=== PATIENT | male | born 1955 | race Asian ===

== ENCOUNTER 2019-07-27 11:22 | Outpatient (CLI) | payer OTHER, SELFPAY ==
--- NOTE | ~2019-07-27 | XR_ITS ---
XR chest 2V DATE: 07/27/2019 11:53 INDICATION: Cough TECHNIQUE: PA and lateral views COMPARISON: 01/06/2016 PA and lateral chest FINDINGS: Normal heart size. There is mild aortic unfolding. No hilar or mediastinal enlargement. No pulmonary infiltrate or consolidation, pleural effusion or pulmonary vascular congestion or pneumotho rax. Probable nipple shadow overlying the lateral left lower lung. Degenerative spurring of the thoracic spine. IMPRESSION: No active cardiopulmonary disease Reviewed, dictated and finalized at location B.
--- NOTE | ~2019-07-27 | XR_ITS ---
XR sinus min 3V DATE: 07/27/2019 11:53 INDICATION: Cough. Sinus pressure. TECHNIQUE: gabrielle Vallejo, lateral and submental vertical views COMPARISON: None FINDINGS: The paranasal sinuses and mastoid air cells are normally developed and aerated. There is prominence of the nasal turbinates. The nasal septum. There is virtually midline. IMPRESSION: Normally aerated paranasal sinuses and mastoid air cells Reviewed, dictated and finalized at location B.
== END 2019-07-27 11:23 | disposition home or self-care (01) ==
LOC: ANHIMG 11:30
PROVIDERS: PCP Internal Medicine; Visit Provider Internal Medicine
DX: J34.89 Other specified disorders of nose and nasal sinuses (principal)
CPT/HCPCS: 70220; 71046

== ENCOUNTER 2020-11-22 09:39 | Outpatient (CLI) | payer OTHER, SELFPAY ==
--- NOTE | 2020-12-09 12:42 | WPDSLEEPSTUD ---
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 He does not wake up feeling short of breath, does not wake up with heartburn, coughing or belching, rarely snores loudly enough that others complain, and only occasionally has trouble sleeping with a cold. he does not wake up gasping for breath at night. He does not have breathing problems at night reported to him by others. He does not sweat excessively at night or notices heart pounding or beating irregularly night. Does not fall asleep during the day, does not fall asleep involuntarily or while driving. Does not have loss of muscle tone was strong emotion. He does not have daytime difficulties due to excessive sleepiness. He does not feel paralyzed on waking or falling asleep. He rarely has vivid dreamlike scenes upon awakening or falling asleep. He does not feel afraid to go to sleep. He does not have nightmares. He rarely remembers his dreams. He does not have racing thoughts, feelings of sadness, depression or anxiety. He denies muscular tension. He denies noticing parts his body jerking or kicking at night. He does not have crawling or aching feelings in his legs. He does not have any kind of leg pain at night. He denies morning jaw pain. He does not grind his teeth during sleep. He is not bothered by pain during the day or awakened by pain at night. He does not wake up feeling stiff in the morning. He occasionally wakes up with sore achy muscles and pain in the neck and spine. He has fatigue. Normal bedtime is 10:00 p.m. falling asleep within 30-45 minutes waking once at night between 4:30 to 5:00 a.m., goes to the bathroom to urinate and returns to bed but usually is not able to fall asleep again. He does not generally take naps. A short nap may be refreshing. He is drowsy in the morning for 3 hours or longer. Habits: Quit tobacco 30 years ago. Caffeine 3-4 cups a day. Alcohol once or twice a week. No recreational drugs. 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 Left thigh pain Mixed hyperlipidemia Muscular aches FAITH on CPAP Prostate cancer screening Shingles Sinus drainage Trochanteric bursitis of left hip Type 2 diabetes mellitus without complication Vitamin D deficiency Weakness Family History Family History Father Family history of diabetes mellitus in first degree relative Diabetes mellitus Mother Family history of diabetes mellitus in first degree relative Diabetes mellitus Sibling Family history of diabetes mellitus in first degree relative Diabetes mellitus Social History Social History Smoking status: Never smoker Second hand tobacco smoke exposure: No Alcohol intake: current Drinks per week: 1 Spiritual care concerns: No Medications Home Medications Medication Instructions Recorded Confirmed Type sitagliptin 50 mg-metformin 500 mg 1 tablet PO BID #180 tablet 05/30/20 12/04/20 Rx tablet omega-3 fatty acids 1,00
[2020-12-09 12:50] VITALS: BMI 28.8
== END 2020-11-23 06:52 | disposition home or self-care (01) ==
LOC: ANHCSM 09:40
PROVIDERS: PCP Internal Medicine; Visit Provider Internal Medicine
DX: G47.33 Obstructive sleep apnea (adult) (pediatric) (principal); Z99.89 Dependence on other enabling machines and devices; R53.83 Other fatigue
CPT/HCPCS: 95811

== ENCOUNTER 2021-04-23 12:23 | Emergency (ER) | payer MEDICARE, OTHER, SELFPAY ==
--- NOTE | ~2021-04-23 | XR_ITS ---
EXAMINATION: XR chest 2V DATE: 04/23/2021 12:59 INDICATION: Chest pain. TECHNIQUE: Frontal and lateral views of the chest were obtained. COMPARISON: Chest 2 views 07/27/2019, chest CT 05/28/2014 FINDINGS: The chest demonstrates clear lungs without pneumonia, pleural effusion, or pneumothorax. Th e heart size is normal. IMPRESSION: 1. No acute cardiopulmonary disease. Reviewed, dictated and finalized at location A. [employer]
--- NOTE | 2021-04-23 12:29 | ECG_ITS ---
Measurements Intervals [place] Rate: 66 P: 15 IN: 176 QRS: 31 QRSD: 82 T: 51 QT: 380 QTc: 398 Interpretive Statements SINUS RHYTHM BASELINE WANDER- I, II, III, V4-V5 NORMAL ECG Electronically Signed On 04-23-2021 13:21:12 [employer] SURVEY WORKER by Darvin Melendez D.O.
[2021-04-23 12:33] VITALS: BP 133/80; PULSE 67; RESP 16; TEMP 36.6; O2SAT 99
[2021-04-23 12:43] LABS: Basophils Percent Auto 0.5 % (0.2-1.2); Eosinophils Absolute Auto 0.1 K/mm3 (0-0.3); Hematocrit 41.5 % (42.0-52.0); Immature Granulocyte Absolute 0.01 K/mm3 (0.00-0.031); Immature Granulocyte Percent A 0.2 % (0-0.5); Lymphocytes Absolute Auto 1.61 K/mm3 (0.9-3.2); Lymphocytes Percent Auto 27.1 % (18.3-44.2); Mean Corpuscular HGB Conc 33.7 g/dl (32-36); Mean Corpuscular Hemoglobin 31.7 pg (26-34); Mean Corpuscular Volume 93.9 fl (80-100); Mean Platelet Volume 9.9 fl (7.4-10.4); Monocytes Absolute Auto 0.4 K/mm3 (0.1-0.6); Monocytes Percent Auto 7.1 % (2.6-8.5); Neutrophils Absolute Auto 3.8 K/mm3 (1.3-6.7); Neutrophils Percent Auto 64.1 % (45.5-73.1); Platelet Count Result 148 k/mm3 (150-375); Red Blood Count 4.42 M/mm3 (4.6-6.20); White Blood Count 5.9 K/mm3 (4.5-10.0)
[2021-04-23 12:58] LABS: INR 1.1; Partial Thromboplastin Time 33.7 SECONDS (22.3-36.8); Prothrombin Time 13.7 Seconds (11.1-14.7)
[2021-04-23 13:01] LABS: Alanine Aminotransferase 51 U/L (4-50); Albumin Level 4.1 g/dL (3.5-5.1); Alkaline Phosphatase 47 U/L (38-126); Anion Gap 10 mmol/L (8-16); Aspartate Amino Transferase 41 U/L (17-59); Bilirubin,Total 0.9 mg/dL (0.2-1.3); Blood Urea Nitrogen 11 mg/dL (9-20); Calcium 9.7 mg/dL (8.4-10.2); Carbon Dioxide 29 mmol/L (22-30); Chloride 98 mmol/L (98-107); Estimated CRCL calculation 84 ml/min; Estimated Glomerular Filt Rate > 60; Glucose 133 mg/dL (65-110); Lipase 305 U/L (23-300); Potassium 4.4 mmol/L (3.4-5.0); Sodium 137 mmol/L (137-145)
[2021-04-23 13:13] LABS: Troponin I < 0.012 ng/mL (0.000-0.034)
[2021-04-23 15:05] VITALS: BP 136/86; PULSE 64; O2SAT 100
[2021-04-23 17:10] VITALS: BP 138/81; PULSE 60; RESP 15; O2SAT 100
[2021-04-23 17:12] VITALS: PULSE 62
[2021-04-23] MEDS: ASPIRIN 81 MG CHEWABLE TABLET 324 MG PO (17:22)
[2021-04-23 18:30] LABS: Troponin I < 0.012 ng/mL (0.000-0.034)
--- NOTE | 2021-04-23 18:43 | ED.CHESTPAIN ---
HPI - Chest Pain General Chief Complaint: Chest Pain Stated Complaint: cp Time Seen by Provider: 04/23/21 16:36 Source: patient Mode of arrival: ambulatory Limitations: no limitations History of Present Illness HPI narrative: 66-year-old with a history of hypertension, diabetes here with complaints of fluttering sensation in his chest last night which lasted for few hours. Patient states it is more like spasms. He denied any shortness of breath, nausea or diaphoresis with the chest discomfort. Patient states that he went to work this morning by mid afternoon he felt weak and had sweating. He denies having pain this morning or in this afternoon. Patient also states that he had a stress test approximately 3 or 4 years ago which was. He also recollects that few days ago he was weight lifting. complaint: chest discomfort Onset (ago): day(s) (1) Timing of current episode: now resolved Onset: during rest Pain location: parasternal Pain radiation: none Severity: moderate Quality: aching Relieving factors: nothing Exacerbating factors: nothing Risk Factors Coronary artery disease risk factors: diabetes and hypertension Related Data Home Medications Medication Instructions Recorded Confirmed omega-3 fatty acids 1,000 mg 1,000 mg PO BID 07/09/20 03/28/21 capsule fosinopril 20 mg PO DAILY 12/04/20 03/28/21 sitagliptin 50 mg-metformin 500 mg 1 tablet PO BID 12/25/20 03/28/21 tablet Allergies Allergy/AdvReac Type Severity Reaction Status Date / Time No Known Allergies Allergy Verified 04/23/21 17:13 Review of Systems Review of Systems: All systems reviewed & are unremarkable except as noted in HPI and below Constitutional: Constitutional: Reports no additional constitutional complaints Eyes: Eyes: Reports no additional eye complaints ENT: Reports system reviewed and no additional complaints, except as documented Cardiovascular: Cardiovascular: Reports as per HPI Respiratory: Respiratory: Reports no additional respiratory complaints Gastrointestinal: Gastrointestinal: Reports no additional gastrointestinal complaints Musculoskeletal: Musculoskeletal: Reports no additional musculoskeletal complaints Integumentary/Breasts: Skin/Breast: Reports system reviewed and no additional complaints, except as docu Neurologic: Reports system reviewed and no additional complaints, except as documented [facility] Past Medical History Medical History Balanitis Bilateral cataracts BMI 28.0-28.9,adult BMI 29.0-29.9,adult Constipation Cough Encounter for routine adult health examination without abnormal findings Fatigue Follow up Hypertension Iron deficiency 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 Left thigh pain Mixed hyperlipidemia Muscular aches FAITH on CPAP Prostate cancer screening Shingles Sinus drainage Trochanteric bursitis of left hip Type 2 diabetes mellitus without complication Vitamin D deficiency Weakness Family History Family History Father Family history of diabetes mellitus in first degree relative Diabetes mellitus Mother Family history of diabetes mellitus in first degree relative Diabetes mellitus Sibling Family history of diabetes mellitus in first degree relative Diabetes mellitus Social History Social History Smoking status: Never smoker Second hand tobacco smoke exposure: No Alcohol intake: never Drinks per week: 1 Spiritual care concerns: No Exam Narrative: GENERAL: Well-appearing, well-nourished, and in no acute distress. HEAD: Normocephalic, atraumatic. EYES: PERRLA and EOMI.. NECK: Supple. CHEST: Clear to auscultation. No respiratory distress. HEART: Regular rate and rhythm. No murmur heard. Normal peripheral pulses. ABDOMEN: Soft, nontender, nondistended, normal active bowel sounds.
[2021-04-23 19:10] VITALS: BP 144/83; PULSE 59; RESP 18; O2SAT 100
== END 2021-04-23 19:14 | disposition home or self-care (01) ==
PROVIDERS: Emergency Medicine; Emergency Provider Family Medicine; PCP Internal Medicine
DX: R07.9 Chest pain, unspecified (principal); I10 Essential (primary) hypertension; E78.2 Mixed hyperlipidemia; G47.33 Obstructive sleep apnea (adult) (pediatric); E11.9 Type 2 diabetes mellitus without complications
CPT/HCPCS: 36415; 71046; 80053; 83690; 84484; 85025; 85610; 85730; 93005; 99284; A9270

== ENCOUNTER → 2021-04-28 07:28 | Outpatient (CLI) | payer MEDICARE, OTHER, SELFPAY ==
[2021-04-28 22:01] LABS: SARS-CoV-2 RNA PCR Negative (Negative)
== END ==
PROVIDERS: PCP Internal Medicine; Visit Provider Internal Medicine
DX: R68.89 Other general symptoms and signs (principal); Z20.822 Contact with and (suspected) exposure to COVID-19
CPT/HCPCS: C9803; U0003; U0005

== ENCOUNTER 2021-07-28 08:29 | Outpatient (CLI) | payer MEDICARE, OTHER, SELFPAY ==
--- NOTE | 2021-07-28 08:50 | EST_ITS ---
Patient Info Name: Rudy Bragg Age: 66 years : 1955 Gender: Male Ht: 67 in Wt: 182 lbs BSA: 2.00 m2 HR: 78 bpm BP: 122 / 84 mmHg Technical Quality: Good Exam Date: 07/28/2021 9:12 AM Exam Location: [facility] Patient Status: Outpatient Admit Date: 07/28/2021 Staff Ordering Physician: Harvey Reynoso MD Fireworks Assembler: Agustina Ling RDCS Attending Provider: Harvey Reynoso MD Referring Physician: Angeles TERAN; Exercise Technologist: Sweta Jose CT Exercise Physician: Kike Hernadez MD Exam Type: CA stress echo Study Info Indications - chronic fatique Treadmill exercise stress echocardiogram is performed. Summary 1. Stress echocardiogram is normal. Stress Echo Findings Left Ventricle Normal left venticular systolic function with no regional wall motion abnormalities noted at rest. Left ventricular end systolic volume decreases post stress. Overall global left ventricular systolic function Improved post stress. No regional wall motion abnormalities noted post stress. Normal augmentation of all wall segments without evidence of ischemia with stress. Protocol: Otoniel Stress ECG Details Stage: REST Duration (min): 0 min : 56 sec Speed (mph): 0.0 Grade (%): 0 HR (bpm): 64 SBP (mmHg): 122 DBP (mmHg): 84 METS: --- Stage: REST Duration (min): 9 min : 34 sec Speed (mph): 0.0 Grade (%): 0 HR (bpm): 68 SBP (mmHg): 122 DBP (mmHg): 84 METS: --- Stage: STAGE 1 Duration (min): 1 min : 0 sec Speed (mph): 1.7 Grade (%): 10 HR (bpm): 89 SBP (mmHg): 122 DBP (mmHg): 84 METS: --- Stage: STAGE 1 Duration (min): 2 min : 0 sec Speed (mph): 1.7 Grade (%): 10 HR (bpm): 96 SBP (mmHg): 122 DBP (mmHg): 84 METS: --- Stage: STAGE 1 Duration (min): 3 min : 0 sec Speed (mph): 1.7 Grade (%): 10 HR (bpm): 101 SBP (mmHg): 164 DBP (mmHg): 84 METS: --- Stage: STAGE 2 Duration (min): 1 min : 0 sec Speed (mph): 2.5 Grade (%): 12 HR (bpm): 112 SBP (mmHg): 164 DBP (mmHg): 84 METS: --- Stage: STAGE 2 Duration (min): 2 min : 0 sec Speed (mph): 2.5 Grade (%): 12 HR (bpm): 117 SBP (mmHg): 164 DBP (mmHg): 84 METS: --- Stage: STAGE 2 Duration (min): 3 min : 0 sec Speed (mph): 2.5 Grade (%): 12 HR (bpm): 125 SBP (mmHg): 158 DBP (mmHg): 91 METS: --- Stage: STAGE 3 Duration (min): 1 min : 0 sec Speed (mph): 3.4 Grade (%): 14 HR (bpm): 138 SBP (mmHg): 187 DBP (mmHg): 106 METS: --- Stage: STAGE 3 Duration (min): 2 min : 0 sec Speed (mph): 0.0 Grade (%): 0 HR (bpm): 145 SBP (mmHg): 187 DBP (mmHg): 106 METS: --- Stage: STAGE 3 Duration (min): 3 min : 0 sec Speed (mph): 0.0 Grade (%): 0 HR (bpm): 115 SBP (mmHg): 187 DBP (mmHg): 106 METS: ---
== END 2021-07-28 08:30 | disposition home or self-care (01) ==
LOC: ANHCARD 08:30
PROVIDERS: PCP Internal Medicine; Visit Provider Internal Medicine
DX: R53.82 Chronic fatigue, unspecified (principal); Z79.899 Other long term (current) drug therapy
CPT/HCPCS: 93351

== ENCOUNTER 2021-10-15 08:04 | Outpatient (CLI) | payer MEDICARE, OTHER, SELFPAY ==
--- NOTE | ~2021-10-15 | XR_ITS ---
XR sinus min 3V DATE: 10/15/2021 08:33 INDICATION: Chronic sinusitis TECHNIQUE: gabrielle Vallejo, submental vertical and lateral views COMPARISON: None FINDINGS: Fluid levels are noted in both maxillary sinuses. The frontal sinuses, ethmoid air cells and sphenoid sinuses appear clear. Mastoid air cells appear no rmally aerated. Normal sella turcica. No skull fracture or bone destruction. IMPRESSION: Fluid levels in both maxillary sinuses suggesting bilateral maxillary sinusitis Reviewed, dictated and finalized at location A. IMPRESSION: Fluid levels in both maxillary sinuses suggesting bilateral maxilla ry sinusitis
--- NOTE | ~2021-10-15 | XR_ITS ---
XR chest 2V DATE: 10/15/2021 08:33 INDICATION: Cough, sinus drainage TECHNIQUE: 2 views COMPARISON: 04/23/2021 2 view chest FINDINGS: Borderline heart size. Mild aortic unfolding. No hilar or mediastinal enlargement. No pulmonary infiltrate or consolidation, pleural effusion or pulmonary vascular congestion or pneumo thorax. Degenerative spurring of the thoracic spine. IMPRESSION: Borderline heart size; no active pulmonary disease Reviewed, dictated and finalized at location A.
== END 2021-10-15 08:05 | disposition home or self-care (01) ==
LOC: ANHIMG 08:06
PROVIDERS: PCP Internal Medicine; Visit Provider Internal Medicine
DX: R05.9 Cough, unspecified (principal); R09.89 Other specified symptoms and signs involving the circulatory and respiratory systems; J32.9 Chronic sinusitis, unspecified; J34.89 Other specified disorders of nose and nasal sinuses; R09.81 Nasal congestion; R09.82 Postnasal drip
CPT/HCPCS: 70220; 71046

== ENCOUNTER 2021-12-05 13:22 | Outpatient (CLI) | payer MEDICARE, OTHER, SELFPAY ==
--- NOTE | ~2021-12-05 | CT_ITS ---
EXAMINATION: CT chest high resolution wo fl DATE: 12/05/2021 13:55 INDICATION: Family history of pulmonary fibrosis TECHNIQUE: Computed tomography (CT) of the chest was performed without intravenous contrast. The dose -length product was 233.09 mGy-cm. Automated exposure control and iterative reconstruction technique were employed. COMPARISON: CT dated 05/28/2014 FINDINGS: Heart size is upper normal. There is mild atherosclerosis of the coronary arteries. No sign ificant pleural or pericardial effusion. No thoracic lymphadenopathy. The upper abdomen is unremarkab le. No significant interstitial lung disease. No endobronchial lesions. There is a 3 mm right upper l obe nodule, image 45. There is 2 mm right lower lobe nodule. No endobronchial lesions. No pneumothora x. No acute osseous abnormality. 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 No acute osseous abnormality. IMPRESSION: 1. No acute cardiopulmonary disease. No evidence for interstitial lung disease. 2: Small right-sided pulmonary nodules measuring 3 mm or less, likely benign. Consider follow-up low dose CT chest in 12 months. Reviewed, dictated and finalized at location A. IMPRESSION: 1. No acute cardiopulmonary disease. No evidence for interstitial lung disease. 2: Small right-sided pulmonary nodules measuring 3 mm or less, likely benign. C onsider follow-up low dose CT chest in 12 months.
--- NOTE | 2021-12-05 15:28 | P.PCNPFT_ITS ---
PFT Procedure Performed PFT Procedure Performed Spirometry with Pre/Post Bronchodilator Plethysmography (Lung Vol) Diffusing Cap (DLCO) Flow Vol Loop PFT Interpretation DOS: 12/05/2021 REQUESTING: Dr. Byrd REASON FOR TESTING: Shortness of breath PULMONARY FUNCTION TESTS Results are reliable and reproducible. Spirometry: Pre-bronchodilator FEV1 is 73% predicted, 2.24 L, below limits of normal. FVC is 67% predicted, 2.68 L, below the lower limits of normal. FEV1:FVC is 84%, this is normal. The BUL40-47% is 2.94 L, within the normal range, 117% of predicted. After bronchodilator administration, there is 1% increase in the FVC which is not significant, a 2% increase in the FEV1 which is not significant. The FEV1/FVC is 85% normal, same. The VMA05-82% is 131% predicted, and this represents an 11% increase. Lung volumes: Total lung capacity is 77% predicted, 4.92 L, within the normal range. Slow vital capacity is 68%, 2.72 L which is below the lower limits of normal. FRC is 85%, 2.81 L, within the normal range. ERV is 49%, 0.67 L, this is below normal. Residual volume is 101% predicted, 2.19 L, normal. RV/TLC is 45% and this is above the normal range indicating air trapping. Diffusion: DLCO 86% predicted, 22.3 mL/min/mmHg, normal. DLCO/VA is 155%, 6.6 mL/min/mmHg, this is above normal range. Flow volume loop: Normal. IMPRESSION: The spirometry is suggestive of a restrictive process with decreased FEV1 and FVC with a normal FEV1:FVC ratio, and a low normal TLC 77%. Air trapping is noted with an increased RV/TLC ratio. Normal DLCO. Compared to a prior study 05/28/2014 at [place], FEV1 was 79% now 73%, lower. FVC was 70% and now 67%, lower. The ratio is preserved. TLC was 105%, now 77%, a greater than expected drop so more of a trend toward restriction. Air trapping was present on the prior study, RV/TLC was 53% compared to normal predicted of 37%. DLCO was 116% and now 86%, normal but significantly lower. DLCO/VA was 161%, now 155%, the same. Clinical correlation recommended. Samreen Alvarez MD
== END 2021-12-05 13:23 | disposition home or self-care (01) ==
PROVIDERS: PCP Internal Medicine; Visit Provider Internal Medicine Pulmonary Disease
DX: R06.00 Dyspnea, unspecified (principal); Z83.6 Family history of other diseases of the respiratory system; R91.8 Other nonspecific abnormal finding of lung field
CPT/HCPCS: 71250; 94060; 94726; 94729

== ENCOUNTER 2022-04-23 01:30 | Day surgery (SDC) | payer MEDICARE, OTHER, SELFPAY ==
[2022-04-15 10:17] VITALS: BMI 28.3
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
[2022-04-23 06:56] VITALS: BP 113/76; PULSE 84; RESP 18; TEMP 36.5; O2SAT 100
[2022-04-23] MEDS: LACTATED RINGERS 1,000 ML 150 ML IV CONT (07:10)
[2022-04-23 07:17] LABS: Glucose Point of Care 117 mg/dl (65-105)
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
[2022-04-23 08:16] VITALS: BP 107/64; PULSE 72; RESP 17; O2SAT 95
[2022-04-23 08:26] VITALS: BP 113/76; PULSE 72; RESP 21; O2SAT 98
[2022-04-23 08:36] VITALS: BP 121/76; PULSE 72; RESP 22; O2SAT 98
== END 2022-04-23 08:44 | disposition home or self-care (01) ==
PROVIDERS: PCP Internal Medicine; Visit Provider Internal Medicine Gastroenterology
PROC: 0DJD8ZZ Inspection of Lower Intestinal Tract, Via Natural or Artificial Opening Endoscopic (ICD-10-PCS; CPT 45378; principal; 2022-04-23 08:00)
DX: Z12.11 Encounter for screening for malignant neoplasm of colon (principal); K64.8 Other hemorrhoids; R19.4 Change in bowel habit; I10 Essential (primary) hypertension; E78.2 Mixed hyperlipidemia; G47.33 Obstructive sleep apnea (adult) (pediatric); E11.9 Type 2 diabetes mellitus without complications; E61.1 Iron deficiency; Z79.84 Long term (current) use of oral hypoglycemic drugs
CPT/HCPCS: G0121; 82948; J2704; J7120

== ENCOUNTER 2022-08-13 08:01 | Outpatient (RCR) | payer MEDICARE, OTHER, SELFPAY | END 2022-10-22 10:56 | disposition home or self-care (01) | LOC: ANHDMC 08:01 | PROVIDERS: PCP Internal Medicine; Visit Provider Internal Medicine | DX: E11.9 Type 2 diabetes mellitus without complications (principal); Z71.89 Other specified counseling | CPT/HCPCS: G0108 ==

== ENCOUNTER 2023-02-03 08:40 | Outpatient (CLI) | payer MEDICARE, OTHER, SELFPAY ==
--- NOTE | ~2023-02-03 | NM_ITS ---
EXAMINATION: NM rosio stress w perfusion DATE: 02/03/2023 10:39 INDICATION: Coronary atherosclerosis. TECHNIQUE: Rest images were obtained following intravenous administration of 10.0 mCi Tc99m tetrofosm in (Myoview). The patient was infused intravenously with Lexiscan (regadenoson). Then, 32.0 mCi Tc99m tetrofosmin (Myoview) was administered intravenously, and stress images were obtained. Data was tomás nstructed into short axis and horizontal and vertical long axis SPECT images. Gated SPECT images were also obtained. COMPARISON: Myocardial perfusion imaging 11/27/2013 FINDINGS: There is no definite reversible or fixed perfusion abnormality to suggest ischemia or infar ction. There is no segmental wall motion abnormality. Left ventricular ejection fraction measures > 70%. IMPRESSION: 1. No definite ischemia or infarct. 2. Normal left ventricular ejection fraction measuring >70%. Reviewed, dictated and finalized at location E.
--- NOTE | 2023-02-03 08:57 | EST_ITS ---
Patient Info Name: Luna Bragg Age: 67 years : 1955 Gender: Male Ht: 67 in Wt: 108 lbs BSA: 1.51 m2 HR: 63 bpm BP: 133 / 89 mmHg Heart Rhythm: Sinus Rhythm Exam Date: 02/03/2023 9:36 AM Exam Location: [facility] Stress Patient Status: Outpatient Admit Date: 02/03/2023 Staff Ordering Physician: Harvey Reynoso MD Attending Provider: Harvey Reynoso MD Exercise Technologist: Sweta Jose CT Exercise Physician: Darvin Melendez DO Exam Type: CA stress rosio w NM Study Info Indications - atherosclerotic heart disease A regadenoson stress test was performed. Summary 1. 1. Negative lexiscan stress test for ischemic ST changes by ECG criteria. 2. 2. Stable hemodynamics throughout the test. 3. 3. Nuclear scan to follow and will be reported separately. Please correlate with it. 4. 4. Patient informed of the above results. Protocol: Lexiscan Stress ECG Details Stage: REST Duration (min): 1 min : 16 sec HR (bpm): 64 SBP (mmHg): 133 DBP (mmHg): 89 Stage: REST Duration (min): 13 min : 29 sec HR (bpm): 66 SBP (mmHg): 133 DBP (mmHg): 89 Stage: STAGE 1 Duration (min): 1 min : 0 sec HR (bpm): 84 SBP (mmHg): 132 DBP (mmHg): 91 Stage: RECOVERY Duration (min): 1 min : 0 sec HR (bpm): 84 SBP (mmHg): 132 DBP (mmHg): 91 Stage: RECOVERY Duration (min): 2 min : 0 sec HR (bpm): 81 SBP (mmHg): 132 DBP (mmHg): 91 Stage: RECOVERY Duration (min): 3 min : 0 sec HR (bpm): 76 SBP (mmHg): 121 DBP (mmHg): 88 Stage: RECOVERY Duration (min): 3 min : 8 sec HR (bpm): 74 SBP (mmHg): 121 DBP (mmHg): 88 Rest HR: 66 bpm Peak HR: 89 bpm Rest Sys BP: 133 mmHg Peak Sys BP: 132 mmHg Max Pred HR: 154 bpm % Max Pred HR: 58 % Target HR: 131 bpm Max RPP: 11,748 bpm*mmHg Termination Reason: Completed protocol Cardiac Symptoms: Shortness of breath Total Time: 1 min : 0 sec Rest Meyer BP: 89 mmHg Peak Meyer BP: 91 mmHg Total Dose: 0.4 mg Resting ECG Sinus rhythm. Stress ECG No ST changes. Arrhythmias None. Report Signatures
== END 2023-02-03 08:41 | disposition home or self-care (01) ==
PROVIDERS: PCP Internal Medicine; Visit Provider Internal Medicine
DX: I25.10 Atherosclerotic heart disease of native coronary artery without angina pectoris (principal); I25.84 Coronary atherosclerosis due to calcified coronary lesion; R93.1 Abnormal findings on diagnostic imaging of heart and coronary circulation
CPT/HCPCS: 78452; 93017; A9502; J2785

== ENCOUNTER 2023-05-27 10:29 | Outpatient (CLI) | payer MEDICARE, OTHER, SELFPAY ==
[2023-05-27 10:50] LABS: Appearance Urine Clear (Clear); Bilirubin Urine Negative (Negative); Blood Urine Negative (Negative); Color Urine Yellow (Yellow); Glucose Urine UA Negative (Negative); Ketones Urine Negative (Negative); Leukocyte Esterase Ur Negative LEU/UL (Negative); Nitrate Urine Negative (Negative); Protein Urine Negative (Negative); Specific Grav Ur 1.011 (1.001-1.035); Urobilinogen Urine 0.2 mg/dL (<2.0)
[2023-05-27 10:54] LABS: Add Urine Microscopic? NO
== END 2023-05-27 10:30 | disposition home or self-care (01) ==
LOC: ANHLAB 10:32
PROVIDERS: PCP Internal Medicine; Visit Provider Internal Medicine
DX: R39.9 Unspecified symptoms and signs involving the genitourinary system (principal); R35.89 Other polyuria
CPT/HCPCS: 81003

== ENCOUNTER 2023-12-10 07:00 | Outpatient (CLI) | payer MEDICARE, SELFPAY ==
--- NOTE | ~2023-12-10 | CT_ITS ---
CT of the Abdomen and Pelvis: Indication: Abnormal labs Technique: 2.5 mm axial scans were obtained through the abdomen and pelvis following intravenous adm inistration of 100 cc of Omnipaque 350. Dose reduction technique was used on this scan by utilizing a utomated exposure control and iterative reconstruction technique. The dose-length product (DLP) was 1 136.63 mGy-cm. Findings: Scans through the lung bases are unremarkable. The liver, spleen, pancreas, gallbladder, adrenals and kidneys are within normal limits. There are at herosclerotic calcifications of the aorta. No lymphadenopathy. No bowel obstruction or bowel wall thickening. There is no evidence to suggest acute appendicitis. Images through the pelvis were performed. Urinary bladder unremarkable. No pelvic mass seen. No ascit es. Impression: No significant abnormalities seen. Reviewed, dictated and finalized at [facility]. Impression: No significant abnormalities seen.
== END 2023-12-10 07:01 | disposition home or self-care (01) ==
PROVIDERS: PCP Internal Medicine; Visit Provider Internal Medicine
DX: R89.9 Unspecified abnormal finding in specimens from other organs, systems and tissues (principal); R82.998 Other abnormal findings in urine
CPT/HCPCS: 74177; Q9967

== ENCOUNTER 2024-08-29 11:27 | Outpatient (CLI) | payer MEDICARE, SELFPAY ==
--- NOTE | ~2024-08-29 | US_ITS ---
LEFT LOWER EXTREMITY VENOUS ULTRASOUND Ordering provider: Harvey Reynoso MD History: . M79.942 - Pain in left lower leg . Comparison: None. FINDINGS: --COMMON FEMORAL: Patent and free of thrombus. Normal compressibility, phasic flow and augmentation. --PROXIMAL SUPERFICIAL FEMORAL: Patent and free of thrombus. Normal compressibility, phasic flow and augmentation. --DISTAL SUPERFICIAL FEMORAL: Patent and free of thrombus. Normal compressibility, phasic flow and au gmentation. --POPLITEAL: Patent and free of thrombus. Normal compressibility, phasic flow and augmentation. --POSTERIOR TIBIAL: Patent and free of thrombus. Normal compressibility, phasic flow and augmentation . IMPRESSION: Negative left lower extremity venous US. No deep vein thrombosis. Reviewed, dictated and finalized at location A.
--- OUTSIDE RECORDS SUMMARY | 2024-08-29 13:24 | XMS_ITS | Encounter Summary ---
Author Organization [facility] Address [address] [place] [address] Phone Care Team Providers Care Health Technician Name Role Phone Milton Junior DO Unavailable [phone] Harvey Reynoso MD Primary Care Provider [phone] Radha Tate RN Unavailable Unavailabl e Encounter Details Date Type Department Care Team (Latest Contact Info) Description 10/15/2021 Orders Only [facility] Scanning, Provider Social History Tobacco Use Types Packs/Day Years Used Date Smoking Tobacco: Former Smokeless Tobacco: Never Sex and Gender Information Value Date Recorded Sex Assigned at Not on file 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 Gender Identity Not on file Sexual Orientation Not on file documented as of this encounter Plan of Treatment Not on file documented as of this encounter Procedures Procedure Name Priority Date/Time Associated Diagnosis Comments SCAN - RADIOLOGY/IMAGING 10/15/2021 documented in this encounter Results * SCAN - RADIOLOGY/IMAGING (10/15/2021) Anatomical Region Laterality Modality Other us Provider Scanning Final Result documented in this encounter Visit Diagnoses Not on filedocumented in this encounter Care Teams Health Technician Relationship Specialty Start Date End Date Harvey Reynoso MD [address] [place] [address] PCP - General Internal Medicine 01/30/20 Milton Junior DO 08/09/18 Radha Tate, RN Registered Nurse Pulmonary Disease 10/06/22 documented as of this encounter
--- OUTSIDE RECORDS SUMMARY | 2024-08-29 13:24 | XMS_ITS | Clinical Summary ---
Author Organization [facility] Address [address] [place] [address] Care Team Providers Care Rink Rat Name Role Phone Harvey Reynoso MD Primary Care Provider [phone] Allergies No known active allergies Medications azelastine (ASTELIN) 0.1 % nasal spray azelastine 137 mcg (0.1 %) nasal spray aerosol Active EPINEPHrine 0.3 MG/0.3ML injection Auvi-Q 0.3 mg/0.3 mL injection, auto-injector ADMINISTER 0.3 MG IN THE MUSCLE 1 TIME FOR 1 DAY Active ferrous sulfate, 65 mg elemental, 325 (65 FE) MG tablet FeroSul 325 mg (65 mg iron) tablet TAKE 1 TABLET BY MOUTH TWICE DAILY 2 Active fluticasone propionate (FLONASE) 50 MCG/ACT nasal spray fluticasone propionate 50 mcg/actuation nasal spray,suspension SHAKE LIQUID AND USE 1 TO 2 SPRAYS IN EACH NOSTRIL TWICE DAILY Active fosinopril (MONOPRIL) 20 MG tablet fosinopril 20 mg tablet TAKE 1 TABLET BY MOUTH DAILY Active rosuvastatin (CRESTOR) 20 MG tablet rosuvastatin 20 mg tablet TAKE 1 TABLET BY MOUTH DAILY 2 Active SITagliptin-met FORMIN HCl (JANUMET) 50-500 MG Tab Janumet 50 mg-500 mg tablet TAKE 1 TABLET BY MOUTH TWICE DAILY Active fexofenadine (QUANG) 180 MG tablet daily. Active Active Problems Problem Noted Date Diagnosed Date Lumbar radiculopathy 06/11/2022 Overview (06/11/2022): Added automatically from request for surgery [id number] Family History Medical History Relation Comments Pulmonary Fibrosis Brother Heart Disease Father pulmonary Mother Relation Status Comments Brother Father Mother Sister Alive Social History Tobacco Use Types Packs/Day Years Used Date Smoking Tobacco: Never Smokeless Tobacco: Never Tobacco Cessation:Counseling Given: Not Answered Alcohol Use Standard Drinks/Week Comments Yes 0 (1 standard drink = 0.6 oz pur e alcohol) social use only Education Answer Date Recorded What is the highest level of school you have completed or the highest degree you have received? 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 Not on file N ot on file Not on file Last Filed Vital Signs Vital Sign Reading Time Taken Comments Blood Pressure 113/76 09/02/2022 8:50 AM CDT Pulse 60 09/02/2022 8:50 AM CDT Temperature 36.6 C (97.9 F) 09/02/2022 7:45 AM CDT Respiratory Rate 18 09/02/2022 8:50 AM CDT Oxygen Saturation 100% 09/02/2022 8:50 AM CDT Inhaled Oxygen Concentration - - Weight 82.2 kg (181 lb 3.2 oz) 09/02/2022 7:45 A M CDT Height 170.2 cm (5' 7 ) 09/02/2022 7:45 AM CDT Body Mass Index 28.38 09/02/2022 7:45 AM CDT Plan of Treatment Health Maintenance Due Date Last Done Comments Colorectal Cancer Screening Colonoscopy (10 Years) 1955 Hepatitis C 1974 DTaP, Tdap and Td Vaccines ( 1 - Tdap) 1975 Pneumococcal Vaccine: 50+ Ye ars (1 of 1 - PCV) 2006 Zoster Vaccines (1 of 2) 2006 Annual Medicare Wellness Visit 2021 COVID-19 Vaccine ( - 2023-2 5 season) 2024 RSV Immunization or 60+ Years (1 - 1-dose 75+ series) 2031 Meningococcal B Vaccine Aged Out No l onger eligible based on patient's age to complete this topic Meningococcal Vaccine Aged Out No janeth zee eligible based on patient's age to complete this topic RSV Immunizations Under 20 Months Aged Out No longer eligible based on patient's age to complete this topic Insurance [id number] OPEN ACCESS [facility] MEDICARE Care Teams Rink Rat Relationship Specialty Start Date End Date Harvey Reynoso MD [address] [place] [address] PCP - General INTERNAL MEDICINE 06/11/22
--- OUTSIDE RECORDS SUMMARY | 2024-08-29 13:24 | XMS_ITS | Encounter Summary ---
Author Organization [facility] Address [address] [place] [address] Phone Care Team Providers Care Manufacturing Development Engineer Name Role Phone Milton Junior DO Unavailable [phone] Harvey Reynoso MD Primary Care Provider Radha Tate RN Unavailable Unavailabl e Encounter Details Date Type Department Care Team (Latest Contact Info) Description 10/13/2021 Orders Only [facility] Scanning, Provider Social History Tobacco Use Types Packs/Day Years Used Date Smoking Tobacco: Former Smokeless Tobacco: Never Sex and Gender Information Value Date Recorded Sex Assigned at Not on file 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 Gender Identity Not on file Sexual Orientation Not on file documented as of this encounter Plan of Treatment Not on file documented as of this encounter Procedures Procedure Name Priority Date/Time Associated Diagnosis Comments PULMONARY - RESULT SCAN 12/05/2021 SCAN - RADIOLOGY/IMAGING 10/13/2021 documented in this encounter Results * PULMONARY - RESULT SCAN (12/05/2021) Anatomical Region Laterality Modality Other us Provider Scanning Final Result * SCAN - RADIOLOGY/IMAGING (10/13/2021) Anatomical Region Laterality Modality Other us Provider Scanning Final Result documented in this encounter Visit Diagnoses Not on filedocumented in this encounter Care Teams Manufacturing Development Engineer Relationship Specialty Start Date End Date Harvey Reynoso MD [address] [facility] [address] [place] [address] PCP - General Internal Medicine 01/30/20 Milton Junior DO 08/09/18 Radha Tate RN Registered Nurse Pulmonary Disease 10/06/22 documented as of this encounter
--- OUTSIDE RECORDS SUMMARY | 2024-08-29 13:24 | XMS_ITS | Encounter Summary ---
Author Organization [facility] Address [address] [place] [address] Phone Care Team Providers Care Knot Tier Name Role Phone Harvey Reynoso MD Primary Care Provider [phone] Milton Junior DO Primary Care Provider [phone] Milton Junior DO Primary Care Provider [phone] Harvey Reynoso MD Unavailable [phone] Milton Junior DO Unavailable [phone] Harvey Reynoso MD Primary Care Provider [phone] Radha Tate RN Unavailable Unavailabl e Encounter Details Date Type Department Care Team (Latest Contact Info) Description 05/29/2014 Orders Only [facility] Scanning, Provider Social History Tobacco Use Types Packs/Day Years Used Date Smoking Tobacco: Never Assessed Sex and Gender Information Value Date Recorded Sex Assigned at Not on file 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 Gender Identity Not on file Sexual Orientation Not on file documented as of this encounter Plan of Treatment Not on file documented as of this encounter Procedures Procedure Name Priority Date/Time Associated Diagnosis Comments SCAN - RADIOLOGY/IMAGING 05/29/2014 documented in this encounter Results * SCAN - RADIOLOGY/IMAGING (05/29/2014) Anatomical Region Laterality Modality Other us Provider Scanning Final Result documented in this encounter Visit Diagnoses Not on filedocumented in this encounter Care Teams Knot Tier Relationship Specialty Start Date End Date Harvey Reynoso MD [address] [facility] [address] [facility] [address] [place] [address] PCP - General 10/15/16 01/31/18 Milton Junior DO [address] [place] [address] [facility] [address] [place] [address] PCP - General 02/01/18 08/08/18 Milton Junior DO [address] [place] [address] [facility] [address] [place] [address] PCP - General Family Medicine 08/09/18 01/29/20 Harvey Reynoso MD [address] [facility] [address] [facility] [address] [place] [address] PCP - General Internal Medicine 01/30/20 Harvey Reynoso MD [address] [facility] [address] [facility] [address] [place] [address] 02/01/18 08/08/18 Milton Junior DO [address] [facility] [address] [facility] [address] [place] [address] 08/09/18 Radha Tate RN Registered Nurse Pulmonary Disease 10/06/22 documented as of this encounter
--- OUTSIDE RECORDS SUMMARY | 2024-08-29 13:24 | XMS_ITS | Encounter Summary ---
Author Organization [facility] Address [address] [place] [address] Phone Care Team Providers Care Hydrographic Surveyor Name Role Phone Milton Junior DO Unavailable [phone] Harvey Reynoso MD Primary Care Provider Radha Tate RN Unavailable Unavailabl e Encounter Details Date Type Department Care Team (Latest Contact Info) Description 10/13/2022 Orders Only [facility] Scanning, Provider Social History Tobacco Use Types Packs/Day Years Used Date Smoking Tobacco: Former Smokeless Tobacco: Never AUDIT-C Answer Date Recorded Q1: How often do you have a drink containing alc ohol? 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 Gender Identity Not on file Sexual Orientation Not on file documented as of this encounter Plan of Treatment Not on file documented as of this encounter Procedures Procedure Name Priority Date/Time Associated Diagnosis Comments SCAN - RADIOLOGY/IMAGING 10/13/2022 documented in this encounter Results * SCAN - RADIOLOGY/IMAGING (10/13/2022) Anatomical Region Laterality Modality Other us Provider Scanning Final Result documented in this encounter Visit Diagnoses Not on filedocumented in this encounter Care Teams Hydrographic Surveyor Relationship Specialty Start Date End Date Harvey Reynoso MD [address] [place] [address] PCP - General Internal Medicine 01/30/20 Milton Junior DO 08/09/18 Radha Tate, RN Registered Nurse Pulmonary Disease 10/06/22 documented as of this encounter
--- OUTSIDE RECORDS SUMMARY | 2024-08-29 13:24 | XMS_ITS | Encounter Summary ---
Author Organization [facility] Address [address] [place] [address] Phone Care Team Providers Care Crm Technical Lead Name Role Phone Milton Junior DO Unavailable [phone] Harvey Reynoso MD Primary Care Provider [phone] Radha Tate RN Unavailable Unavailabl e Encounter Details Date Type Department Care Team (Latest Contact Info) Description 12/05/2021 Orders Only [facility] Scanning, Provider Social History Tobacco Use Types Packs/Day Years Used Date Smoking Tobacco: Former Smokeless Tobacco: Never Sex and Gender Information Value Date Recorded Sex Assigned at Not on file 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 Gender Identity Not on file Sexual Orientation Not on file documented as of this encounter Plan of Treatment Not on file documented as of this encounter Procedures Procedure Name Priority Date/Time Associated Diagnosis Comments SCAN - RADIOLOGY/IMAGING 12/05/2021 documented in this encounter Results * SCAN - RADIOLOGY/IMAGING (12/05/2021) Anatomical Region Laterality Modality Other us Provider Scanning Final Result documented in this encounter Visit Diagnoses Not on filedocumented in this encounter Care Teams Crm Technical Lead Relationship Specialty Start Date End Date Harvey Reynoso MD [address] [place] [address] PCP - General Internal Medicine 01/30/20 Milton Junior DO 08/09/18 Radha Tate, RN Registered Nurse Pulmonary Disease 10/06/22 documented as of this encounter
--- OUTSIDE RECORDS SUMMARY | 2024-08-29 13:24 | XMS_ITS | Clinical Summary ---
Author Organization [place] [id number] [facility] Address [address] [place] [address] Care Team Providers Care Bakery Technician Name Role Phone Milton Junior DO Unavailable [phone] Harvey Reynoso MD Primary Care Provider [phone] Radha Tate RN Unavailable Unavailabl e Allergies No known active allergies Medications fosinopril (MONOPRIL) 20 mg tabletIndicatio ns:hypertension Take 1 tablet (20 mg total) by mouth cv/cvn cv tsc system operator before breakfast 7 Active sildenafil (VIAGRA) 100 mg tabletIndicatio ns:Erectile Dysfunction Take 1 tablet (100 mg total) by mouth as needed for erectile dysfunction 0 9 Active JANUMET 50-500 mg per tabletIndicatio ns:type 2 diabetes mellitus Take 1 tablet by mouth 2 (two) times a day 0 9 Active rosuvastatin (CRESTOR) 10 mg tabletIndicatio ns:hyperlipidem ia Take 1 tablet (10 mg total) by mouth nightly 2 Active FeroSuL 325 mg (65 mg iron) tabletIndicatio ns:Iron Deficiency Anemia Take 1 tablet (325 mg total) by mouth cv/cvn cv tsc system operator before breakfast 2 Active fexofenadine (QUANG) 180 mg tabletIndicatio ns:Allergic Conjunctivitis, Seasonal Allergic Rhinitis Take 1 tablet (180 mg total) by mouth daily as needed (allergies) Active nystatin-triamc inolone creamIndication s:skin irritation Apply 1 Application topically as needed (skin irritation) 3 Active azelastine-flut icasone 137-50 mcg/spray spray,non-aeros ol INSTILL 1 SPRAY INTO EACH AFFECTED NOSTRIL DAILY 23 g 5 3 Active Additional Information Patient not taking.Informant: Self, Reported on 08/08/2024 fluticasone propionate (FLONASE) 50 mcg/actuation nasal sprayIndication s:Allergic Conjunctivitis, Allergic Rhinitis Administer 2 sprays into each nostril daily as needed for allergies or rhinitis 3 Active cholecalciferol , vitamin D3, (VITAMIN D3 ORAL)Indication s:supplement Take 1 tablet by mouth cv/cvn cv tsc system operator before breakfast Active mecobalamin (B12 ACTIVE ORAL)Indication s:supplement Take 1 tablet by mouth cv/cvn cv tsc system operator before breakfast Active UNABLE TO FINDIndications :supplement Take 1 each by mouth nightly Med Name: Asif supplement Active omega-3/dha/epa /dpa/fish oil (OMEGA-3 2100 ORAL)Indication s:supplement Take 1 tablet by mouth nightly Active acetaminophen 500 mg capsuleIndicati ons:Pain Take 2 capsules (1,000 mg total) by mouth every 6 (six) hours 4 Active cyclobenzaprine (FLEXERIL) 10 mg tablet Take 1 tablet (10 mg total) by mouth 3 (three) times a day as needed for muscle spasms 90 tablet 4 Active Additional Information Patient not taking.Reported on 08/08/2024 azelastine (ASTELIN) 137 mcg (0.1 %) nasal spray Active famotidine (PEPCID) 20 mg tablet Take 1 tablet (20 mg total) by mouth 2 (two) times a day 60 tablet 11 4 025 Discontin ued(Thera py completed ) Active Problems Problem Noted Date Diagnosed Date 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 Pulmonary [address] 8[address] [place] [address] [place] [address] Oliva Yancey RMA 08/08/2024 1:48 PM CDT - 08/08/2024 11:59 PM CDT Hospital Encounter [facility] [address] [place] [address] Scottie Heart MD Family history of pulmonary fibrosis; Primary hypertension; Restrictive ventilatory defect Discharge Disposition: Discharge to home or self care 08/08/2024 1:30 PM CDT Office Visit [facility] Pulmonary [address] [place] [id number] Scottie Heart MD Family history of pulmonary fibrosis (Primary Dx); Primary hypertension; Restrictive ventilatory defect; Allergic rhinitis, unspecified seasonality, unspecified trigger 08/08/2024 12:11 PM CDT - 08/08/2024 11:59 PM CDT Hospital Encounter [facility] PFT Lab [address] [facility] [facility] [address] [place] [address] Family history of pulmonary fibrosis; Restrictive ventilatory defect Discharge Disposition: Discharge to home or self care from Last 3 Months Immunizations Immunization Administration Dates Next Due Influenza, Quadrivalent, Alyce l Culture-based MDCK, Preservative Free, Antibiotic Free, Intramuscular 02/05/2020 Influenza, Quadrivalent, Rec ombinant, Egg Free, Preservative Free, Intramuscular 03/23/2018 Influenza, Trivalent, IM (MDV) 02/28/2017,2015,04/04/2014 Influenza, Trivalent, Preser vative Free, Intramuscular 02/08/2016 Influenza, Unspecified 02/08/2012 Surgical History Surgery Date Site/Laterality Comments BACK SURGERY 05/10/2023 - 06/09/2023 L4, L5 Medical History Medical History Date Comments Hypertension Type 2 diabetes mellitus (HCC) Sleep apnea Family History Medical History Relation Name Comments Hypertension Brother Pulmonary fibrosis Brother Heart attack Father Lung disease Mother Hypertension Sister Relation Name Status Comments Brother Father Mother Sister Social History Tobacco Use Types Packs/Day Years Used Date Smoking Tobacco: Former Passive Smoke Exposure: Never Smokeless Tobacco: Never AUDIT-C Answer Date Recorded Q1: How often do you have a drink containing alcohol? Never 01/21/2024 Q2: How many drinks containi ng alcohol do you have on a typical day when you are drinking? Patient does not drink Q3: How often do you have si x or more drinks on one occasion? Never 01/21/2024 Personal Safety Answer Date Recorded Have you ever been in or are you currently in a harmful physical or emotional relationship or is someone making you feel afraid or unsafe? 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 Gender Identity Not on file Sexual Orientation Not on file Obstetrics History Last Filed Vital Signs Vital Sign Reading Time Taken Comments Blood Pressure 126/73 08/08/2024 12:44 PM CDT Pulse 87 08/08/2024 12:44 PM CDT Temperature 36.2 C (97.1 F) 08/08/2024 12:44 PM CDT Respiratory Rate 16 11/16/2023 1:24 PM CDT Oxygen Saturation 98% 08/08/2024 12:44 PM CDT Inhaled Oxygen Concentration - - Weight 85.7 kg (189 lb) 08/08/2024 12:44 PM CDT Height 170.2 cm (5' 7 ) 08/08/2024 12:44 PM CDT Body Mass Index 29.6 08/08/2024 12:44 PM CDT Plan of Treatment Health Maintenance Due Date Last Done Comments Colon Cancer Screening-Colonoscopy 1955 Depression Screening 1955 Hepatitis C Screening 1955 Prostate Cancer Screening-PSA 1956 DTaP/Tdap/Td Vaccine (1 - Tdap) 1967 Hepatitis B Screening 1974 Pneumococcal vaccine 65+ (1 of 2 - PCV) 1975 Zoster Vaccine (1 of 2) 2006 Abdominal Aortic Aneurysm (A AA) Screen 2021 Well Visit 65+ 2021 Fall Risk Assessment 06/03/2024 06/03/2023 Influenza Vaccine (Season Ended) 2025 02/05/2020, 03/23/2018, 02/28/2017, Additional history exists Medical Devices Implanted Type Area Scroll Machine Operator Device Identifier Shelf Expiration Date Model / Serial / Lot Medtronic Inc Kit Graft Bone Sponge Xlg Infuse 8cc Granules [id number] - [id number] Implanted:Qty: 1 on 06/01/2023 by Marques Cruz MD at [facility] N/A: Spine Lumbar Medtronic Inc [id number] / / Allosource Canpac Nonpurge Frozen Graft 25cc Bone [id number] - [id number] Implanted:Qty: 1 on 06/01/2023 by Marques Cruz MD at [facility] N/A: Spine Lumbar Allosource 02/19/2028 [id number] / / [id number] Globus Medical Altera [id number] 15d Spacer Spinal 1124.1133 - [id number] Implanted:Qty: 1 on 06/01/2023 by Marques Cruz MD at [facility] N/A: Spine Lumbar Globus Medical 1124.1133 / / New Age Medical Graft Bone Magnetos 10cc 1-2mm Granules In Moldable Putty [id number] - [id number] Implanted:Qty: 1 on 06/01/2023 by Marques Cruz MD at [facility] N/A: Spine Lumbar New Age Medical [id number] / / Alyssa Spine [place] Od6.5 Mm L45 Mm Polyaxial Spine Screw Bone [id number] - [id number] Implanted:Qty: 3 on 06/01/2023 by Marques Cruz MD at [facility] N/A: Spine Lumbar Lorado Spine [id number] / / Lorado Spine [place] Spine Screw Set Taylor [id number] - [id number] Implanted:Qty: 4 on 06/01/2023 by Marques Cruz MD at [facility] N/A: Spine Lumbar Alyssa Spine [id number] / / Lorado Spine Doron Spinal Lumbar Radiolucent Non Hexagonal Head Laser Etched Radius Ela 3 6x35mm Titanium [id number] - [id number] Implanted:Qty: 2 on 06/01/2023 by Marques Cruz MD at [facility] N/A: Spine Lumbar Lorado Spine [id number] / / Lorado Spine Od6.5 Mm L50 Mm Polyaxial Screw Bone Nonsterile [place] [id number] - [id number] Implanted:Qty: 1 on 06/01/2023 by Marques Cruz MD at [facility] N/A: Spine Lumbar Lorado Spine [id number] / / Procedures Procedure Name Priority Date/Time Associated Diagnosis Comments CT CHEST HIGH RESOLUTION WO CONTRAST Routine 08/08/2024 1:55 PM CDT Family history of pulmonary fibrosis Primary hypertension Restrictive ventilatory defect PULMONARY FUNCTION TEST (PFT) Routine 08/08/2024 12:37 PM CDT Family history of pulmonary fibrosis Restrictive ventilatory defect from Last 3 Months Results * CT Chest High Resolution WO Contrast (08/08/2024 1:55 PM CDT) Anatomical Region Laterality Modality Chest N/A Computed Tomogra phy 08/08/2024 2:34 PM CDT Impressions 08/08/2024 9:01 PM CDT 1. No findings findings to suggest interstitial lung disease. 2. Unchanged mild scattered air trapping in both lungs. Dictated by: Shamir Multani MD The radiology attending physician has personally reviewed this study, and had reviewed and/or edited this written report and agrees with it. Electronically signed by: Can Ramires M.D. Narrative 08/08/2024 9:01 PM CDT EXAMINATION: CT CHEST WITHOUT INTRAVENOUS CONTRAST (HIGH RESOLUTION CHEST CT) TECHNIQUE: Standard high-resolution chest CT was performed both in inspiration and exhalation. Images were reconstructed using thin section 1 mm and more standard 3 mm sections. HISTORY: Interstitial lung disease. COMPARISON: 11/16/2023 FINDINGS: There is no consolidation, pleural effusion, or pneumothorax. No evidence of reticulation, traction bronchiectasis, or honeycombing. Scattered minimal air trapping is present on expiratory images, similar in distribution and severity as on 11/16/2023. No suspicious pulmonary nodule is identified. The heart size is normal. There is no pericardial effusion. Mild to moderate multivessel coronary calcifications are present. There is left-sided aortic arch with normal caliber aorta. No pathologically enlarged thoracic lymph nodes are identified. There is a stable partially calcified right thyroid nodule. No acute abnormality is noted within the partially imaged upper abdomen. There is no acute fracture or aggressive osseous lesion. Procedure Note Can Ramires MD PhD - 08/08/2024 EXAMINATION: CT CHEST WITHOUT INTRAVENOUS CONTRAST (HIGH RESOLUTION CHEST CT) TECHNIQUE: Standard high-resolution chest CT was performed both in inspiration and exhalation. Images were reconstructed using thin section 1 mm and more standard 3 mm sections. HISTORY: Interstitial lung disease. COMPARISON: 11/16/2023 FINDINGS: There is no consolidation, pleural effusion, or pneumothorax. No evidence of reticulation, traction bronchiectasis, or honeycombing. Scattered minimal air trapping is present on expiratory images, similar in distribution and severity as on 11/16/2023. No suspicious pulmonary nodule is identified. The heart size is normal. There is no pericardial effusion. Mild to moderate multivessel coronary calcifications are present. There is left-sided aortic arch with normal caliber aorta. No pathologically enlarged thoracic lymph nodes are identified. There is a stable partially calcified right thyroid nodule. No acute abnormality is noted within the partially imaged upper abdomen. There is no acute fracture or aggressive osseous lesion. IMPRESSION: 1. No findings findings to suggest interstitial lung disease. 2. Unchanged mild scattered air trapping in both lungs. Dictated by: Shamir Multani MD The radiology attending physician has personally reviewed this study, and had reviewed and/or edited this written report and agrees with it. Electronically signed by: Can Ramires M.D. Scottie Heart MD [facility] [place] PROCEDURES Final Result * Pulmonary Function Test - (08/08/2024 12:37 PM CDT) FVC PRE 2.48 L [facility] FVC %PRE PRED 68 % [facility] FEV1 PRE 2.08 L [facility] FEV1 %PRE PRED 74 % [facility] FEV1/FVC PRE 83.8 % [facility] Anatomical Region Laterality Modality PFT 08/08/2024 12:1 3 PM CDT Narrative 08/09/2024 5:05 PM CDT Table formatting from the original result was not included. [facility] Division of Pulmonary & Critical Care Medicine [address] [place] [address]; [place] [address]; [place] [address]; [phone] Pulmonary Function Laboratory Pulmonary Stress Test Simple/Oxygen Assessment Patient: Luna Bragg Date: 08/08/2024 : 1955 Ht: 67 IN Wt: 189 LBS Time (min) Distance (ft)/ Griffin O2 L/M SpO2 HR Charisse* BP FEV1 % Pred Rest: RA 98 91 0 133/86 2.08 74% Walk/Bike: 1 RA 97 106 0 2 RA 94 102 0 3 RA 92 104 0 4 RA 92 105 0 5 RA 100 105 0 6 min 0 sec RA 99 106 0 Recovery: 1 RA 98 102 0 145/88 3 *Charisse rate of perceived exertion (1-10 dyspnea scale) Ramon, CHEST 2003; 123:1408 Walk Test Summary: Six Minute Walk Distance: 1225 ft Six-minute Walk Work [distance (m) x body wt (kg)]: 15894 kg.m (normal >60,000kg.m) Oxygen required to maintain SpO2 greater than 90% during six minutes of walkin L/M Comments: Interpretation: Breathing room air, SpO2 is normal at rest. During exercise sufficient to increase pulse, SpO2 falls but remains normoxemic. On this basis, SpO2 is adequate at rest breathing room air and while walking breathing room air. Andrzej Rodriguez MD By signing this report, the attending pulmonary physician certifies that he has personally reviewed and interpreted the graphic and numerical data associated with this pulmonary function study and has reviewed and /or edited a preliminary draft report and agrees with the written final report. PFT performed at:->[facility] Adult PFT Lab- [facility] Procedure:->Spirometry Procedure:->Oxygen Assessment Titration Pulmonary Function Test Interpretation SPIROMETRY: The FEV1 to FVC ratio is normal. The FEV1 and FVC are reduced in a pattern suggestive of a restrictive abnormality. The inspiratory loop is appropriate for the expiratory flow abnormality. PULSE OXIMETRY: See Oxygen Assessment/Cardiopulmonary Exercise Study-Simple Impression: There is a mild restrictive ventilatory defect. However, measurement of lung volumes is suggested to confirm this if clinically indicated. Compared with most recent study, there has been no significant interval change. Andrzej Rodriguez MD The attending pulmonary physician certifies a physician presence in the [facility] during the administration of aerosolized bronchodilator. The attending pulmonary physician certifies that he has reviewed and interpreted the graphic and numerical data of this pulmonary function study and agrees with the written final report. The lower limit of normal for PaO2 and %HbO2 is age dependent. However, the [facility] Pulmonary Function Laboratory defines hypoxemia as a PaO2 <56 mm Hg or a %HbO2 <89%. Starting on May of 2024 the [facility] Pulmonary Function Laboratory utilizes race neutral GLI Global normative equations. Scottie Heart MD PFT ORDERABLES Final Result from Last 3 Months Insurance [facility] MEDICARE MEDICARE [facility] [id number] T MEDICARE Advance Directives For more information, please contact: [phone] Documents on File Type Date Recorded Patient Shipsmith Expl anation ADVANCE DIRECTIVE 05/19/2023 9:39 PM POWER OF SURGICAL NURSE-MEDICAL * Full Code (Latest Code Status on File) Date Activated Date Inactivated Comments 06/02/2023 10:00 AM 06/03/2023 6:43 PM Care Teams Bakery Technician Relationship Specialty Start Date End Date Harvey Reynoso MD [address] [facility] [address] [facility] [place] [id number] PCP - General Internal Medicine 01/30/20 Milton Junior DO 08/09/18 Radha Tate, RN Registered Nurse Pulmonary Disease 10/06/22
--- OUTSIDE RECORDS SUMMARY | 2024-08-29 13:24 | XMS_ITS | Clinical Summary ---
Author Organization [facility] [employer] [facility] Address [address] [address] Care Team Providers Care Hydrostatic Tubing Tester Name Role Phone Harvey Reynoso MD Primary Care Provider Source Comments [facility],non-owned Affiliates and Associated Physician Practices is amultiple site organization consisting of ambulatory clinics and hospital sitesin [place], [place], [place] and [place]. This disclosure is being madepursuant to the Care Everywhere program and may not contain all information available regarding this patient. Last updated 18.[facility] Medications * Be aware that medications may not be up to date on this document. Alwaysverify current medications with the patient. sildenafil (VIAGRA) 100 MG tablet Take 100 mg by mouth. 11/17/2016 Active SITagliptin (JANUVIA) 100 MG tablet 3 11/04/2016 Active tretinoin (RETIN-A) 0.05 % cream 45 g 2 11/17/2016 Active fosinopril (MONOPRIL) 20 MG tablet 1 09/09/2016 Active SITagliptin-metF ORMIN (JANUMET) 50-500 MG tablet 1 10/18/2016 Ac tive Immunizations Immunization Administration Dates Next Due iNFLUENZA VACCINE, RECOM-BRENNAN, QUADR. 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 Gender Identity Not on file Sexual Orientation Not on file Plan of Treatment Health Maintenance Due Date Last Done Comments COLOGUARD (AGES 45-75) - COL ON CA SCREENING 1955 COLON MONITORING 1956 COLONOSCOPY - COLON CA SCREENING 1956 CT COLONOGRAPHY - COLON CA SCREENING 1955 Colorectal Cancer Screening 1955 FIT - COLON CA SCREENING 1955 FLEX SIG - COLON CA SCREENING 1956 LIPID TESTING 1955 HEPATITIS C SCREENING 03/11/1974 DTAP/TDAP/TD VACCINES (1 - Tdap) 1975 PNEUMOCOCCAL VACCINE 50+ (1 of 1 - PCV) 2006 ZOSTER VACCINE (1 of 2) 2006 COVID-19 VACCINE (1 - 2023-2 5 season) 2024 DEPRESSION SCREENING 05/10/2024 INFLUENZA VACCINE (Season Ended) 2025 03/23/20 18 Respiratory Syncytial Virus (RSV) Vaccine Pt: or over 60 yrs (1 - 1-dose 75+ series) 2031 HEPATITIS B VACCINE Aged Out No longe r eligible based on patient's age to complete this topic HIB VACCINE Aged Out No longer eligi ble based on patient's age to complete this topic HPV VACCINE Aged Out No longer eligi ble based on patient's age to complete this topic MENINGOCOCCAL (Group B) VACC INE SHARED DECISION-MAKING Aged Out No longer eligibl e based on patient's age to complete this topic MENINGOCOCCAL GROUPS A/C/Y/W VACCINE Aged Out No longer eligible b ased on patient's age to complete this topic [place] [address] [employer] Care Teams Hydrostatic Tubing Tester Relationship Specialty Start Date End Date Harvey Reynoso MD [address] [place] [id number] PCP - General 12/12/10
--- OUTSIDE RECORDS SUMMARY | 2024-08-29 13:24 | XMS_ITS | Encounter Summary ---
Author Organization [facility] Address [address] [place] [address] Phone Care Team Providers Care Net Maker Name Role Phone Milton Junior DO Unavailable [phone] Harvey Reynoso MD Primary Care Provider [phone] Radha Tate RN Unavailable Unavailabl e Reason for Referral * Procedure (Routine) - Authorized Specialty Diagnoses / Procedures Referred By Alba ko Referred To Contact Pulmonology Diagnoses Family history of pulmonary fibrosis Procedures Pulmonary Function Test -[facility] Adult PFT Lab- [facility]; Oxygen Assessment Titration, Spirometry, DLCO; Spirometry Scottie Heart MD [address] [facility] [address] [place] [address] Phone: tel: fax: Referral ID Status Reason Start Date Expiration Date V isits Requested Visits Authorized [id number] Authorized 11/05/2023 10/28/2024 12 12 LE PULLER Reason for Visit * Procedure (Routine) - Authorized Specialty Diagnoses / Procedures Referred By Alba ko Referred To Contact Pulmonology Diagnoses Family history of pulmonary fibrosis Procedures Pulmonary Function Test -[facility] Adult PFT Lab- [facility]; Oxygen Assessment Titration, Spirometry, DLCO; Spirometry Scottie Heart MD [address] [facility] [address] [place] [address] Phone: tel: fax: Referral ID Status Reason Start Date Expiration Date V isits Requested Visits Authorized [id number] Authorized 11/05/2023 10/28/2024 12 12 Encounter Details Date Type Department Care Team (Latest Contact Info) Description 05/04/2023 10:06 AM SAMPLE PULLER Hospital Encounter 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 Never 01/21/2024 1:33 PM Erasmo Leavitt Q2: How many drinks containing alcohol do you have on a typical day when you are drinking? Patient does not drink 01/21/2024 1:33 PM Erasmo Leavitt Q3: How often do you have six or more drinks on one occasion? Never 01/21/2024 1:33 PM Erasmo Leavitt documented as of this encounter Plan of Treatment Not on file documented as of this encounter Procedures Procedure Name Priority Date/Time Associated Diagnosis Comments PULMONARY FUNCTION TEST (PFT) Routine 05/04/2023 11:21 AM SAMPLE PULLER Family history of pulmonary fibrosis documented in this encounter Results * Pulmonary Function Test - (05/04/2023 11:21 AM SAMPLE PULLER) FVC PRE 2.35 L [facility] FVC %PRE PRED 59 % [facility] FEV1 PRE 1.97 L [facility] FEV1 %PRE PRED 65 % [facility] FEV1/FVC PRE 83.6 % [facility] DLCO PRE 30.4 ml/min/mmH g [facility] DLCO %PRE PRED 125 % [facility] Anatomical Region Laterality Modality PFT 05/04/2023 10:0 9 AM SAMPLE PULLER Impressions 05/06/2023 9:35 AM SAMPLE PULLER There is a moderate restrictive ventilatory defect. However measurement of lung volumes is suggested to confirm this if clinically indicated. There is no impairment of alveolar gas exchange by DLCO. Compared with study dated 09/29/22 , there has been significant interval worsening of the restrictive ventilatory defect. The attending pulmonary physician certifies a physician presence in the [facility] during the administration of aerosolized bronchodilator. The attending pulmonary physician certifies that he/she has reviewed and interpreted the graphic and numerical data of this pulmonary function study and agrees with the written final report. The lower limit of normal for PO2 and %HbO2 is age dependent. However, the [facility] Pulmonary Function Laboratory defines hypoxemia as a PO2 <55 or a %HbO2 <89. Narrative 05/06/2023 9:35 AM SAMPLE PULLER Table formatting from the original result was not included. [facility] Division of Pulmonary & Critical Care Medicine [address] [place] [address]; [place] [address] [facility]; [place] [id number]; [phone] Pulmonary Function Laboratory Pulmonary Stress Test Simple/Oxygen Assessment Patient: Rudy Bragg Date: 05/04/2023 : 1955 Ht: 67 IN Wt: 180 LBS Time (min) Distance (ft)/ Griffin O2 L/M SpO2 HR Charisse* BP FEV1 % Pred Rest: RA 100 73 0 126/76 1.97 65 % Walk/Bike: 1 RA 100 85 0 2 RA 98 89 0 3 RA 99 87 0 4 RA 100 88 0 5 RA 100 92 0 6 min 0 sec RA 100 88 0 Recovery: 1 RA 100 84 0 142/81 1.82 60% 3 RA 100 82 0 *Charisse rate of perceived exertion (1-10 dyspnea scale) Ramon, CHEST 2003; 123:1408 Walk Test Summary: Six Minute Walk Distance: 1125 ft Six-minute Walk Work [distance (m) x body wt (kg)]: 72856 kg.m (normal >60,000kg.m) Oxygen required to maintain SpO2 greater than 90% during six minutes of walkin L/M Comments: O2A- ATS STANDARDS- NO STOPS Interpretation: Breathing room air, SpO2 is normal at rest and during exercise sufficient to increase pulse from 73 to 92 b/min, SpO2 is stable. On this basis, SpO2 is adequate at rest breathing room air and while walking breathing room air. This level of exercise is associated with no significant change of FEV1. Rell Garcia M.D. By signing this report, the attending pulmonary physician certifies that he/she has personally reviewed and interpreted the graphic and numerical data associated with this pulmonary function study and has reviewed and /or edited a preliminary draft report and agrees with the written final report. PFT performed at:->[facility] Adult PFT Lab- [facility] Procedure:->Oxygen Assessment Titration Procedure:->Spirometry Procedure:->DLCO DLCO:->Spirometry Pulmonary Function Test Interpretation SPIROMETRY: Spirometry did not meet standards of acceptability and reproducibility. This diminishes the reliability of the results The FEV-I and FVC are reduced in a pattern suggestive of a restrictive abnormality. FLOW VOLUME LOOPS: Inspiratory loops are somewhat flattened which could represent a variable intrathoracic defect or be submaximal effort. DIFFUSING CAPACITY: The diffusing capacity is increased. An increased diffusing capacity may be due to left ventricular failure, asthma, or obesity. Scottie Heart MD PFT ORDERABLES Final Result documented in this encounter Visit Diagnoses Diagnosis Family history of pulmonary fibrosis documented in this encounter Care Teams Net Maker Relationship Specialty Start Date End Date Harvey Reynoso MD [address] [place] [address] [place] [address] PCP - General Internal Medicine 01/30/20 Milton Junior DO 08/09/18 Radha Tate, RN Registered Nurse Pulmonary Disease 10/06/22 documented as of this encounter
--- OUTSIDE RECORDS SUMMARY | 2024-08-29 13:24 | XMS_ITS | Encounter Summary ---
Author Organization [facility] Address [address] [place] [address] Phone Care Team Providers Care Vanstone Machine Operator Name Role Phone Milton Junior DO Unavailable [phone] Harvey Reynoso MD Primary Care Provider [phone] Radha Tate RN Unavailable Unavailabl e Reason for Referral * Procedure (Routine) - Closed Specialty Diagnoses / Procedures Referred By Alba ko Referred To Contact Pulmonology Diagnoses Family history of pulmonary fibrosis Procedures Pulmonary Function Test -[facility]FT Lab- [facility]; Spirometry, Oxygen Assessment Titration Scottie Heart MD [address] [facility] [address] [place] [address] Phone: tel: fax: Referral ID Status Reason Start Date Expiration Date Visits Re quested Visits Authorized [id number] Closed 05/04/2023 06/02/2024 1 1 Reason for Visit * Procedure (Routine) - Closed Specialty Diagnoses / Procedures Referred By Alba ko Referred To Contact Pulmonology Diagnoses Family history of pulmonary fibrosis Procedures Pulmonary Function Test -[facility] PFT Lab- [facility]; Spirometry, Oxygen Assessment Titration Scottie Heart MD [address] [facility] [address] [place] [address] Phone: tel: fax: Referral ID Status Reason Start Date Expiration Date Visits Re quested Visits Authorized [id number] Closed 05/04/2023 06/02/2024 1 1 Encounter Details Date Type Department Care Team (Latest Contact Info) Description 11/16/2023 10:24 AM CDT Hospital Encounter [facility] [address] [facility] Office [address] [place] [address] Family history of pulmonary fibrosis [...] on file 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 Gender Identity Not on file Sexual Orientation Not on file documented as of this encounter Functional Status * Audit-C Score Answer Date of Assessment Author 0 01/21/2024 1:33 PM EUSEBIAT Simone Ireland * Question Answer Date of Assessment Author [...] Diagnosis Comments PULMONARY FUNCTION TEST (PFT) Routine 11/16/2023 11:07 AM CDT Family history of pulmonary fibrosis documented in this encounter Results * Pulmonary Function Test - (11/16/2023 11:07 AM CDT) FVC PRE 2.51 L [facility] FVC %PRE PRED 64 % [facility] FEV1 PRE 2.09 L [facility] FEV1 %PRE PRED 69 % [facility] FEV1/FVC PRE 83.4 % [facility] Anatomical Region Laterality Modality PFT 11/16/2023 10:3 8 AM CDT Impressions 11/17/2023 8:41 PM CDT There is a mild restrictive ventilatory defect. However measurement of lung volumes is suggested to confirm this if clinically indicated. Compared with study dated 05.04.2023 , there has been no significant interval change. The attending pulmonary physician certifies a physician presence in the [facility] during the administration of aerosolized bronchodilator. The attending pulmonary physician certifies that he/she has reviewed and interpreted the graphic and numerical data of this pulmonary function study and agrees with the written final report. The lower limit of normal for PO2 and %HbO2 is age dependent. However, the [facility] Pul[facility] defines hypoxemia as a PO2 <55 or a %HbO2 <89. Narrative 11/17/2023 8:41 PM CDT Table formatting from the original result was not included. [facility] Division of Pulmonary & Critical Care Medicine [address] [place] [address]; [place] [address] [facility]; [place] [address]; [phone] Pulmonary Function Laboratory Pulmonary Stress Test Simple/Oxygen Assessment Patient: Luna Bragg Date: 11/16/2023 : 1955 Ht: 67 IN Wt: 183 LBS Time (min) Distance (ft)/ Griffin O2 L/M SpO2 HR Charisse* BP FEV1 % Pred Rest: RA 100 76 0 126/76 2.09 69 % Walk/Bike: 1 RA 100 80 0 2 RA 99 81 0 3 RA 98 83 0 4 RA 99 82 0 5 RA 99 85 0 6 min 0 sec RA 99 84 0 Recovery: 1 RA 100 74 0 111/79 2.08 69% 3 RA 100 71 0 *Charisse rate of perceived exertion (1-10 dyspnea scale) Ramon, CHEST 2003; 123:1408 Walk Test Summary: Six Minute Walk Distance: 1150 ft Six-minute Walk Work [distance (m) x body wt (kg)]: 29068 kg.m (normal >60,000kg.m) Oxygen required to maintain SpO2 greater than 90% during six minutes of walkin L/M Comments: Interpretation: Breathing room air, SpO2 is normal at rest and during exercise sufficient to increase pulse from 76 to 85b/min, SpO2 is stable. On this basis, SpO2 is adequate at rest breathing room air and while walking breathing room air. This level of exercise is associated with no significant change of FEV1. Lidia Blandon M.D. By signing this report, the attending pulmonary physician certifies that he/she has personally reviewed and interpreted the graphic and numerical data associated with this pulmonary function study and has reviewed and /or edited a preliminary draft report and agrees with the written final report. PFT performed at:->[facility] Adult PFT Lab- [facility] Procedure:->Spirometry Procedure:->Oxygen Assessment Titration Pulmonary Function Test Interpretation SPIROMETRY: The FEVI to FVC ratio is normal. The FEV-I and FVC are reduced in a pattern suggestive of a restrictive abnormality. However, measurement of lung volumes is suggested to confirm this if clinically indicated. FLOW VOLUME LOOPS: The inspiratory loop is appropriate for the expiratory flow abnormality. PULSE OXIMETRY: See Oxygen Assessment/Cardiopulmonary Exercise Study-Simple us Scottie Heart MD PFT ORDERABLES Final Result documented in this encounter Visit Diagnoses Diagnosis Family history of pulmonary fibrosis documented in this encounter Care Teams Vanstone Machine Operator Relationship Specialty Start Date End Date Harvey Reynoso MD [address] [facility] [address] [email or web address] [address] [place] [address] PCP - General Internal Medicine 01/30/20 Milton Junior DO 08/09/18 Radha Tate RN Registered Nurse Pulmonary Disease 10/06/22 documented as of this encounter
--- OUTSIDE RECORDS SUMMARY | 2024-08-29 13:24 | XMS_ITS | Encounter Summary ---
Author Organization [facility] Address [address] [place] [address] Care Team Providers Care Portfolio Director Name Role Phone Harvey Reynoso MD Primary Care Provider [phone] Encounter Details Date Type Department Care Team (Late st Contact Info) Description 12/21/2022 Orders Only [facility], [address] [address] Harvey Reynoso MD [address] [place] [address] Social History Tobacco Use Types Packs/Day Years Used Date Smoking Tobacco: Never Smokeless Tobacco: Never Alcohol Use Standard Drinks/Week Comments Yes 0 (1 standard drink = 0.6 oz pur e alcohol) social use only Education Answer Date Recorded What is the highest level of school you have completed or the highest degree you have received? 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 Not on file N ot on file Not on file documented as of this encounter Plan of Treatment Not on file documented as of this encounter Visit Diagnoses Diagnosis Abnormal findings on diagnostic imaging of heart/coronary circulation- Primary Other nonspecific abnormal cardiovascular system function study 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
--- OUTSIDE RECORDS SUMMARY | 2024-08-29 13:24 | XMS_ITS | Encounter Summary ---
Author Organization [facility] Address [address] [place] [address] Phone Care Team Providers Care Electronic Engineering Draftsperson Name Role Phone Harvey Reynoso MD Primary Care Provider [phone] Milton Junior DO Primary Care Provider [phone] Milton Junior DO Primary Care Provider [phone] Harvey Reynoso MD Unavailable [phone] Milton Junior DO Unavailable [phone] Harvey Reynoso MD Primary Care Provider [phone] Radha Tate RN Unavailable Unavailabl e Encounter Details Date Type Department Care Team (Latest Contact Info) Description 01/06/2016 Orders Only [facility] Scanning, Provider Social History Tobacco Use Types Packs/Day Years Used Date Smoking Tobacco: Never Assessed Sex and Gender Information Value Date Recorded Sex Assigned at Not on file 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 Gender Identity Not on file Sexual Orientation Not on file documented as of this encounter Plan of Treatment Not on file documented as of this encounter Procedures Procedure Name Priority Date/Time Associated Diagnosis Comments SCAN - RADIOLOGY/IMAGING 01/06/2016 documented in this encounter Results * SCAN - RADIOLOGY/IMAGING (01/06/2016) Anatomical Region Laterality Modality Other us Provider Scanning Final Result documented in this encounter Visit Diagnoses Not on filedocumented in this encounter Care Teams Electronic Engineering Draftsperson Relationship Specialty Start Date End Date Harvey Reynoso MD [address] [facility] [address] [facility] [address] [place] [address] PCP - General 10/15/16 01/31/18 Milton Junior DO [address] [place] [address] [address] [facility] [address] [place] [address] PCP - General 02/01/18 08/08/18 Milton Junior DO [address] [place] [address] [address] [facility] [address] [place] [address] PCP - General Family Medicine 08/09/18 01/29/20 Harvey Reynoso MD [address] [facility] [address] [facility] [address] [place] [address] PCP - General Internal Medicine 01/30/20 Harvey Reynoso MD [address] [facility] [address] [facility] [address] [place] [address] 02/01/18 08/08/18 Milton Junior DO [address] [facility] [address] [facility] [address] [place] [address] 08/09/18 Radha Tate RN Registered Nurse Pulmonary Disease 10/06/22 documented as of this encounter
--- OUTSIDE RECORDS SUMMARY | 2024-08-29 13:24 | XMS_ITS | Encounter Summary ---
Author Organization [facility] Address [address] [place] [address] Phone Care Team Providers Care Statistical Financial Analyst Name Role Phone Milton Junior DO Unavailable [phone] Harvey Reynoso MD Primary Care Provider [phone] Reason for Referral * Procedure (Routine) - Closed Specialty Diagnoses / Procedures Referred By Alba ko Referred To Contact Pulmonology Diagnoses Pulmonary fibrosis (HCC) Procedures Pulmonary Function Test -[facility] Adult PFT Lab- [facility]; Spirometry, Oxygen Assessment Titration Scottie Heart MD [address] [place] [address] Phone: tel: fax: Referral ID Status Reason Start Date Expiration Date Visits Re quested Visits Authorized [id number] Closed 09/22/2022 10/22/2023 1 1 Reason for Visit * Procedure (Routine) - Closed Specialty Diagnoses / Procedures Referred By Alba ko Referred To Contact Pulmonology Diagnoses Pulmonary fibrosis (HCC) Procedures Pulmonary Function Test -[facility] Adult PFT Lab- 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 Gender Identity Not on file Sexual [...] Diagnosis Comments PULMONARY FUNCTION TEST (PFT) Routine 09/29/2022 3:10 PM CDT Pulmonary fibrosis (HCC) documented in this encounter Results * Pulmonary Function Test - (09/29/2022 3:10 PM CDT) FVC PRE 2.53 L [facility] FVC %PRE PRED 63 % [facility] FEV1 PRE 2.13 L [facility] FEV1 %PRE PRED 69 % [facility] FEV1/FVC PRE 83.9 % [facility] Anatomical Region Laterality Modality PFT 09/29/2022 1:07 PM CDT Narrative 10/02/2022 12:02 PM CDT Table formatting from the original result was not included. [facility] Division of Pulmonary & Critical Care Medicine [address] [place] [address]; [place] [address]; [place] [address]; [phone] Pulmonary Function Laboratory Pulmonary Stress Test Simple/Oxygen Assessment Patient: Rudy Bragg Date: 09/29/2022 : 1955 Ht: 67 IN Wt: 177 LBS Time (min) Distance (ft)/ Griffin O2 L/M SpO2 HR Charisse* BP FEV1 % Pred Rest: RA 95 76 0 110/72 2.13 69 % Walk/Bike: 1 RA 100 83 0 2 RA 97 82 0 3 RA 98 83 0 4 RA 98 84 0 5 RA 98 84 0 6 min 0 sec RA 98 83 0 Recovery: 1 RA 100 81 0 120/76 2.06 67 % 3 RA 100 77 0 *Charisse rate of perceived exertion (1-10 dyspnea scale) Ramon, CHEST 2003; 123:1408 Walk Test Summary: Six Minute Walk Distance: 1050 ft Six-minute Walk Work [distance (m) x body wt (kg)]: 43702 kg.m (normal >60,000kg.m) Oxygen required to maintain SpO2 greater than 90% during six minutes of walkin L/M Comments: ATS Script; head sensor; O2A No stops. Patient stated they walk slow due to spinal stenosis, not their breathing. Interpretation: Breathing room air, SpO2 is adequate at rest and during exercise sufficient to increase pulse from 76 to 84b/min, SpO2 is falls but remains normoxemic. On this basis, [...] with the written final report. PFT performed at:->[facility] Adult PFT Lab- [facility] Procedure:->Spirometry Procedure:->Oxygen Assessment Titration Scottie Heart MD PFT ORDERABLES Final Result documented in this encounter Visit Diagnoses Diagnosis Pulmonary fibrosis (HCC) Postinflammatory pulmonary fibrosis documented in this encounter Care Teams Statistical Financial Analyst Relationship Specialty Start Date End Date Harvey Reynoso MD [address] [facility] [address] [facility] [address] [place] [address] PCP - General Internal Medicine 01/30/20 Milton Junior DO 08/09/18 documented as of this encounter
--- OUTSIDE RECORDS SUMMARY | 2024-08-29 13:24 | XMS_ITS | Referral Summary ---
Author Organization [facility] [address] [facility] Address [address] [place] [address] Care Team Providers Care Bulk Mail Clerk Name Role Phone Milton Junior DO Unavailable [phone] Harvey Reynoso MD Primary Care Provider [phone] Radha Tate RN Unavailable Unavailabl e Encounters Date Type Department Care Team Description 08/10/2024 Documentation [facility] [address] [facility] 8th [place] [address] [place] [address] Oliva Yancey RMA 08/08/2024 1:48 PM CDT - 08/08/2024 11:59 PM CDT Hospital Encounter [facility] [address] [place] [address] Scottie Heart MD Family history of pulmonary fibrosis; Primary hypertension; Restrictive ventilatory defect Discharge Disposition: Discharge to home or self care 08/08/2024 1:30 PM CDT Office Visit [facility] [address] [facility] [address] [place] [id number] Scottie Heart MD Family history of pulmonary fibrosis (Primary Dx); Primary hypertension; Restrictive ventilatory defect; Allergic rhinitis, unspecified seasonality, unspecified trigger 08/08/2024 12:11 PM CDT - 08/08/2024 11:59 PM CDT Hospital Encounter [facility] Lab [address] [facility] [address] [place] [address] Family history of pulmonary fibrosis; Restrictive ventilatory defect Discharge Disposition: Discharge to home or self care from Last 3 Months Allergies No known active allergies Medications fosinopril (MONOPRIL) 20 mg tabletIndicatio ns:hypertension Take 1 tablet (20 mg total) by mouth body work auto trimmer before breakfast 7 Active sildenafil (VIAGRA) 100 [...] 1 tablet (325 mg total) by mouth body work auto trimmer before breakfast 2 Active fexofenadine (QUANG) 180 [...] ORAL)Indication s:supplement Take 1 tablet by mouth body work auto trimmer before breakfast Active mecobalamin (B12 ACTIVE ORAL)Indication s:supplement Take 1 tablet by mouth body work auto trimmer before breakfast Active UNABLE TO FINDIndications :supplement [...] (02/22/2023): Added automatically from request for surgery [id number] Family history of pulmonary fibrosis 08/09/2018 Arthritis 03/23/2018 Back problem 03/23/2018 Hypercholesterolemia 03/23/2018 Hypertensive disorder 03/23/2018 Pulmonary fibrosis Immunizations Immunization Administration Dates Next Due Influenza, Quadrivalent, Alyce l Culture-based MDCK, Preservative Free, Antibiotic Free, Intramuscular 02/05/2020 Influenza, Quadrivalent, Rec ombinant, Egg Free, Preservative Free, Intramuscular 03/23/2018 Influenza, Trivalent, IM (MDV) 02/28/2017,2015,04/04/2014 Influenza, Trivalent, Preser vative Free, Intramuscular 02/08/2016 Influenza, Unspecified 02/08/2012 Social History Tobacco Use Types Packs/Day Years [...] on file 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 Gender Identity Not on file Sexual Orientation Not on file Last Filed Vital Signs [...] 08/08/2024 12:44 PM CDT Plan of Treatment Not on file Medical Devices Implanted Type Area Trimming Machine Set Up Operator Device Identifier Shelf Expiration Date Model / Serial / Lot Medtronic Inc Kit Graft Bone Sponge Xlg Infuse 8cc Granules [id number] - [id number] Implanted:Qty: 1 on 06/01/2023 by Marques Cruz MD at [facility] N/A: Spine Lumbar Medtronic Inc [id number] / / Allosource Canpac Nonpurge Frozen Graft 25cc Bone [id number] - [id number] Implanted:Qty: 1 on 06/01/2023 by Marques Cruz MD at [facility] N/A: Spine Lumbar Allosource 02/19/2028 [id number] / / [id number] Globus Medical Altera [id number] 15d Spacer Spinal 1124.1133 - [id number] Implanted:Qty: 1 on 06/01/2023 by Marques Cruz MD at [facility] N/A: Spine Lumbar Globus Medical 1124.1133 / / New Age Medical Graft Bone Magnetos 10cc 1-2mm Granules In Moldable Putty [id number] - [id number] Implanted:Qty: 1 on 06/01/2023 by Marques Cruz MD at [facility] N/A: Spine Lumbar New Age Medical [id number] / / [place] Spine [place] Od6.5 Mm L45 Mm Polyaxial Spine Screw Bone [id number] - [id number] Implanted:Qty: 3 on 06/01/2023 by Marques Cruz MD at [facility] N/A: Spine Lumbar Alyssa Spine [id number] / / Alyssa Spine [place] Spine Screw Set Taylor [id number] - [id number] Implanted:Qty: 4 on 06/01/2023 by Marques Cruz MD at [facility] N/A: Spine Lumbar [place] Spine [id number] / / [place] Spine Doron Spinal Lumbar Radiolucent Non Hexagonal Head Laser Etched Radius Ela 3 6x35mm Titanium [id number] - [id number] Implanted:Qty: 2 on 06/01/2023 by Marques Cruz MD at [facility] N/A: Spine Lumbar Alyssa Spine [id number] / / Alyssa Spine Od6.5 Mm L50 Mm Polyaxial Screw Bone Nonsterile [place] [id number] - [id number] Implanted:Qty: 1 on 06/01/2023 by Marques Cruz MD at [facility] N/A: Spine Lumbar Alyssa Spine [id number] / / Procedures Procedure Name Priority Date/Time [...] by: Can Ramires M.D. Scottie Heart MD IMG CT PROCEDURES Final Result * Pulmonary Function Test - (08/08/2024 12:37 PM CDT) FVC PRE 2.48 L [facility] FVC %PRE PRED 68 % [facility] FEV1 PRE 2.08 L [facility] FEV1 %PRE PRED 74 % [facility] FEV1/FVC PRE 83.8 % [facility] Anatomical Region Laterality Modality PFT 08/08/2024 12:1 3 PM CDT Narrative 08/09/2024 5:05 PM CDT Table formatting from the original result was not included. [facility] Division of Pulmonary & Critical Care Medicine [address] [place] [address]; [address] [place] [facility]; [place] [address]; [phone] Pulmonary Function Laboratory Pulmonary Stress Test Simple/Oxygen [...] Work [distance (m) x body wt (kg)]: 48785 kg.m (normal >60,000kg.m) Oxygen required to maintain [...] with the written final report. PFT performed at:->[facility] Procedure:->Spirometry Procedure:->Oxygen Assessment Titration Pulmonary Function [...] and %HbO2 is age dependent. However, the [facility] Pul[facility] Function Laboratory defines hypoxemia as a PaO2 <56 mm Hg or a %HbO2 <89%. Starting on May of 2024 the [facility] Pulmonary Function Laboratory utilizes race neutral GLI Global normative equations. Scottie Heart MD PFT ORDERABLES Final Result from Last 3 Months Insurance T MEDICARE MEDICARE [facility] Address: [address] [address] [place] [address] [facility] [id number] [facility] Advance Directives For more information, please contact: [phone] Documents on File Type Date Recorded Patient Director Human Services Expl anation ADVANCE DIRECTIVE 05/19/2023 9:39 PM POWER OF HEAVY REPAIRER-MEDICAL * Full Code (Latest Code Status on File) Date Activated Date Inactivated Comments 06/02/2023 10:00 AM 06/03/2023 6:43 PM Care Teams Bulk Mail Clerk Relationship Specialty Start Date End Date Harvey Reynoso MD [address] [facility] [address] [place] [address] PCP - General Internal Medicine 01/30/20 Milton Junior DO 08/09/18 Radha Tate, RN Registered Nurse Pulmonary Disease 10/06/22
--- OUTSIDE RECORDS SUMMARY | 2024-08-29 13:24 | XMS_ITS | Continuity of Care Document ---
Author Organization formerly [facility] Address [id number] [place] [address] [address] [place] [address] Phone Care Team Providers Care Editorial Writer Name Role Phone Yamile Alfred Unavailable Unavailable Advance Directives Directive Yes / No Effective Date File Name No Information Encounters Encounter Description Practice Location Reason(s) For Visit Diagnoses Date Provider Providers Copied on Encounter [facility], [id number] [place] [address] [address], [place], [place], [id number], [place] tel:[phone] [facility] No Information [address] , [address], [place], [address], [place]. tel:[phone] Family History Family Member Type Diagnosis Age At Onset No Information Payers Payer name Insurance type Covered republican ID Authoriza tion(s) No Information Social History Type Description Quantity Date Captured Comments Sex Male Smoking Status No Information Chief Complaint And Reason For Visit No Information Reason For Referral Reason For Referral No Information History Of Present Illness Encounter Date Complaint History Of Prese nt Illness No Information Functional Status Date Functional Assessmen t No Information Instructions Date Instruction Additional Infor mation No Information Assessments Type Assessment Date No Information Patient Care Teams Name Effective Dates (start - stop) Status Members No Information
--- OUTSIDE RECORDS SUMMARY | 2024-08-29 13:24 | XMS_ITS | Encounter Summary ---
Author Organization [facility] Address [address] [place] [address] Care Team Providers Care Head Of Sales And Marketing Name Role Phone Milton Junior DO Unavailable [phone] Harvey Reynoso MD Primary Care Provider [phone] Radha Tate RN Unavailable Unavailabl e Encounter Details Date Type Department Care Team (Late st Contact Info) Description 01/03/2024 Documentation Internal Medicine Lance Subramanian BS Social History Tobacco Use Types Packs/Day Years Used Date Smoking Tobacco: Former Passive Smoke Exposure: Never Smokeless Tobacco: Never AUDIT-C Answer Date Recorded Q1: How often do you have a drink containing alcohol? 2-4 times a month 11/16/2023 Q2: How many drinks containi ng alcohol do you have on a typical day when you are drinking? Patient does not drink Q3: How often do you have si x or more drinks on one occasion? Never 11/16/2023 Personal Safety Answer Date Recorded Have you ever been in or are you currently in a harmful physical or emotional relationship or is someone making you feel afraid or unsafe? 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
== END 2024-08-29 11:28 | disposition home or self-care (01) ==
PROVIDERS: PCP Internal Medicine; Visit Provider Internal Medicine
DX: M79.662 Pain in left lower leg (principal); M79.89 Other specified soft tissue disorders
CPT/HCPCS: 73564; 93971

== ENCOUNTER 2024-11-28 15:27 | Outpatient (CLI) | payer MEDICARE, SELFPAY ==
--- NOTE | ~2024-11-28 | MR_ITS ---
EXAMINATION: MR knee LT wo con DATE: 11/28/2024 16:08 INDICATION: Medial meniscal tear presenting with left knee pain TECHNIQUE: Magnetic resonance imaging (MRI) of the left knee was performed without intravenous contra st. Sequences included coronal PD-weighted FSE, coronal PD-weighted FS FSE, sagittal T2-weighted FSE , sagittal PD-weighted FS FSE and axial PD weighted fat saturated FSE. COMPARISON: None. FINDINGS: Medial compartment: Complex tear of the posterior horn and posterior body of the medial meniscus. There is displacement o f a meniscal flap which extends cephalad from the posterior body of the meniscus likely arising from the posterior horn which appears smaller than the anterior horn. There is extensive deep chondral ulc eration involving greater than 50% the cartilage thickness along the anterior central weightbearing m edial femoral condyle. Small region of underlying subarticular edema-like signal change along the med ial margin of the central weightbearing medial femoral condyle. Less severe partial thickness chondra l ulceration along the medial side of the medial tibial plateau with additional small region of mild subarticular edema-like signal change along the medial rim. Lateral compartment: Lateral meniscus is normal. Articular cartilage is normal. Patellofemoral compartment: Extensive partial thickness chondral ulceration with chondral surface regularity involving significan t portions of the medial trochlea, trochlear groove and medial side of the lateral trochlea. There ar e couple underlying moderate-sized central subchondral osteophytes at the midportion of the trochlear groove and adjacent superolateral aspect of the medial trochlea. There are some chondral swelling wi th deep chondral fissuring at the inferomedial aspect of the medial trochlea. Patellar cartilage is n ormal. Ligaments and tendons: Anterior and posterior cruciate ligaments are normal. The medial collateral ligament and fibular jared ateral ligament complex are normal. Moderate sized enthesophytes at the superficial patellar insertio n of the otherwise normal distal quadriceps tendon. There are some magic angle artifact along the oth erwise normal patellar tendon. The visualized medial and lateral hamstring tendons as well as the emma otibial band are normal. Fluid: Moderate-sized left knee joint effusion with mild synovitis at the margins of the suprapatellar pouch and along the posterior margin of Hoffa's fat pad. Moderate-sized Montes's cyst.. No loose osteochond ral bodies identified. Mild prepatellar edema without discrete bursal fluid collection. Osseous/other: Bone alignment is normal. Aside from the previous noted mild subarticular edema-like signal change in the medial compartment there is normal marrow signal with no fracture or pathologic marrow replacing process. IMPRESSION: 1. Complex medial meniscal tear with moderate osteoarthritis with high-grade chondromalacia in the me dial compartment. 2. Mild patellofemoral osteoarthritis with moderate and high-grade chondromalacia at the trochlea. 3. Moderate-sized left knee joint effusion and moderate-sized Montes's cyst. Reviewed, dictated and finalized at location A. IMPRESSION: 1. Complex medial meniscal tear with moderate osteoarthritis with high-grade ch ondromalacia in the medial compartment. 2. Mild patellofemoral osteoarthritis with moderate and high-grade chondromalac ia at the trochlea. 3. Moderate-sized left knee joint effusion and moderate-sized Montes's cyst.
== END 2024-11-28 15:28 | disposition home or self-care (01) ==
LOC: GOSHIMG 15:27
PROVIDERS: PCP Internal Medicine; Visit Provider Orthopaedic Surgery
DX: S83.232A Complex tear of medial meniscus, current injury, left knee, initial encounter (principal); X58.XXXA Exposure to other specified factors, initial encounter
CPT/HCPCS: 73721

== ENCOUNTER 2025-02-15 08:40 | Outpatient (CLI) | payer MEDICARE, SELFPAY ==
--- NOTE | ~2025-02-15 | NM_ITS ---
EXAMINATION: NM rosio stress w perfusion DATE: 02/15/2025 11:37 INDICATION: Abnormal findings on diagnostic imaging of the heart. TECHNIQUE: Rest images were obtained following intravenous administration of 10.4 mCi Tc99m tetrofosmin (Myoview). The patient was infused intravenously with Lexiscan (regadenoson). Then, 31.5 mCi Tc99m tetrofosmin (Myoview) was administered intravenously, and stress images were obtained. Data was tomás nstructed into short axis and horizontal and vertical long axis SPECT images. Gated SPECT images were also obtained. COMPARISON: Myocardial perfusion imaging 02/03/2023 FINDINGS: There is no definite reversible or fixed perfusion abnormality to suggest ischemia or infarction. There is no segmental wall motion abnormality. Left ventricular ejection fraction measures >70%. IMPRESSION: 1. No definite ischemia or infarct. 2. Normal left ventricular ejection fraction measuring >70%. Reviewed, dictated and finalized at location E.
--- NOTE | 2025-02-15 09:03 | EST_ITS ---
Patient Info Name: Rudy Bragg Age: 69 years : 1955 Gender: Male Ht: 67 in Wt: 180 lbs BSA: 1.98 m2 HR: 63 bpm BP: 135 / 82 mmHg Exam Date: 02/15/2025 9:03 AM Patient Status: O Admit Date: 02/15/2025 Exam Type: CA stress rosio w NM A regadenoson stress test was performed. Staff Referring Physician: Harvey Reynoso MD Attending Provider: Harvey Reynoso MD Exercise Technologist: Shanique Grey Exercise Physician: Darvin Melendez DO Summary 1. 1. Negative lexiscan stress test for ischemic ST changes by ECG criteria. 2. 2. Stable hemodynamics throughout the test. 3. 3. Nuclear scan to follow and will be reported separately. Please correlate with it. 4. 4. Patient informed of the above results. Protocol: Lexiscan Stress ECG Details Stage: REST Duration (min): 0 min : 45 sec HR (bpm): 63 SBP (mmHg): 135 DBP (mmHg): 82 Stage: REST Duration (min): 8 min : 11 sec HR (bpm): 66 SBP (mmHg): 135 DBP (mmHg): 82 Stage: STAGE 1 Duration (min): 1 min : 0 sec HR (bpm): 85 SBP (mmHg): 133 DBP (mmHg): 81 Stage: RECOVERY Duration (min): 1 min : 0 sec HR (bpm): 88 SBP (mmHg): 133 DBP (mmHg): 81 Stage: RECOVERY Duration (min): 2 min : 0 sec HR (bpm): 81 SBP (mmHg): 133 DBP (mmHg): 81 Stage: RECOVERY Duration (min): 3 min : 0 sec HR (bpm): 80 SBP (mmHg): 111 DBP (mmHg): 75 Stage: RECOVERY Duration (min): 4 min : 0 sec HR (bpm): 78 SBP (mmHg): 111 DBP (mmHg): 75 Stage: RECOVERY Duration (min): 5 min : 0 sec HR (bpm): 76 SBP (mmHg): 125 DBP (mmHg): 76 Stage: RECOVERY Duration (min): 5 min : 14 sec HR (bpm): 79 SBP (mmHg): 125 DBP (mmHg): 76 Rest HR: 66 bpm Peak HR: 88 bpm Rest Sys BP: 135 mmHg Peak Sys BP: 133 mmHg Max Pred HR: 152 bpm % Max Pred HR: 58 % Target HR: 129 bpm Max RPP: 11,704 bpm*mmHg Termination Reason: Completed protocol Cardiac Symptoms: Shortness of breath, Stomach discomfort Total Time: 1 min : 0 sec Rest Meyer BP: 82 mmHg Peak Meyer BP: 81 mmHg Total Dose: 0.4 mg Resting ECG Sinus rhythm. Stress ECG No ST changes. Arrhythmias None. Report Signatures
== END 2025-02-15 08:41 | disposition home or self-care (01) ==
PROVIDERS: PCP Internal Medicine; Visit Provider Internal Medicine
DX: R93.1 Abnormal findings on diagnostic imaging of heart and coronary circulation (principal); I25.10 Atherosclerotic heart disease of native coronary artery without angina pectoris; I25.84 Coronary atherosclerosis due to calcified coronary lesion; I10 Essential (primary) hypertension; E78.2 Mixed hyperlipidemia; E11.9 Type 2 diabetes mellitus without complications
CPT/HCPCS: 78452; 93017; A9502; J2785